=== PATIENT | female | born 1970 | race Caucasian/White ===

== ENCOUNTER 2019-06-14 12:54 | Inpatient (IN) | payer MEDICAID ==
[~2019-06-14] VITALS: Ht 157.5 cm; Wt 110.4 kg
[~2019-06-14 12:54] MED LIST: LURA20TA PO; OLAN15TA2 PO; [UNRECOGNIZED DRUG - CODE] TP
[2019-06-14 16:19] VITALS: BP 152/88
[2019-06-14] MEDS ORDERED: LORazepam 2 MG TABLET PO PRN (16:30)
[2019-06-14] MEDS ORDERED: INFLUENZA VIRUS VACCINE QVS 2019-20 (3YR+)/PF 60 MCG/0.5 ML SYRINGE IM ONE (16:30)
[2019-06-14] MEDS ORDERED: ZOLPIDEM TARTRATE 10 MG TABLET PO PRN (16:30)
[2019-06-14] MEDS ORDERED: OLAN10TA3 PO (16:42)
[2019-06-14] MEDS ORDERED: BENZ2TAB10 PO (16:42)
[2019-06-14 16:49] VITALS: BP 150/90
[2019-06-15 03:36] VITALS: BP 139/82
[2019-06-15 08:15] VITALS: BP 137/51
[2019-06-15 10:15] VITALS: BP 161/91
[2019-06-15] MEDS: CloNIDine HCL 0.1 MG TABLET PO SCH ×2 (10:57→17:00)
[2019-06-15 13:42] VITALS: BP 124/69
[2019-06-15 16:04] VITALS: BP 136/68
[2019-06-15] MEDS: OLANZapine 10 MG TABLET PO SCH (20:30)
[2019-06-15] MEDS: BENZTROPINE MESYLATE 2 MG TABLET PO SCH (21:00)
[2019-06-16 08:19] VITALS: BP 128/84
[2019-06-16] MEDS: CloNIDine HCL 0.1 MG TABLET PO SCH ×2 (09:00→17:00)
[2019-06-16 16:10] VITALS: BP 126/89
[2019-06-16] MEDS: OLANZapine 10 MG TABLET PO SCH (20:26)
[2019-06-16] MEDS: BENZTROPINE MESYLATE 2 MG TABLET PO SCH (20:33)
[2019-06-17 06:41] VITALS: BP 128/80
[2019-06-17 07:52] LABS: BASOPHILS % (AUTO) 0.7 % (0.0-2.0); HEMATOCRIT 43.6 % (36-46); HEMOGLOBIN 14.5 g/dL (12.0-16.0); LYMPHOCYTES # (AUTO) 2.5 K/uL (1.0-4.8); MEAN CORPUSCULAR HEMOGLOBIN 29.2 pg (26.0-34.0); MEAN CORPUSCULAR HGB CONC 33.3 G/dL (31.0-37.0); MEAN CORPUSCULAR VOLUME 88 fL (80-100); MONOCYTES # (AUTO) 0.8 K/uL (0.1-1.0); MONOCYTES % (AUTO) 5.6 % (2.0-9.0); NEUTROPHILS # (AUTO) 10.2 K/uL (1.8-7.7); NEUTROPHILS % (AUTO) 73.7 % (40.0-70.0); PLATELET COUNT (AUTO) 259 K/uL (150-450); RED BLOOD CELL COUNT(AUTO) 4.97 MIL/uL (4.00-5.20); RED CELL DISTRIBUTION WIDTH 13.7 % (11.5-14.5)
[2019-06-17 08:09] LABS: HEMOGLOBIN A1C 8.2 % (4.5-6.2)
[2019-06-17 08:18] LABS: ALANINE AMINOTRANSFERASE 35 U/L (12-78); ALBUMIN 3.6 g/dL (3.4-5.0); ALKALINE PHOSPHATASE 124 U/L (46-116); ANION GAP 7 mmol/L (8-16); ASPARTATE AMINOTRANSFERASE 21 U/L (15-37); BILIRUBIN,TOTAL 0.4 mg/dL (0.1-1.0); CALCIUM, TOTAL 9.3 mg/dL (8.8-10.5); CARBON DIOXIDE 33 mmol/L (22-29); CHLORIDE 98 mmol/L (98-107); CHOL/HDL RATIO 5.3 (3.9-5.7); CHOLESTEROL 235 mg/dL (131-200); CREATININE 0.55 mg/dL (0.60-1.30); FREE T4 (FREE THYROXINE) 1.08 ng/dL (0.76-1.46); GLOMERULAR FILTR. RATE CALC > 60 mL/min (>60); GLUCOSE,RANDOM 160 mg/dL (70-110); HCG,QUANTITATIVE < 1 mIU/mL (0-6); HDL CHOLESTEROL 44 mg/dL (40-60); LDL CHOL (CALC.) 148 mg/dL (0-130); POTASSIUM 4.7 mmol/L (3.5-5.1); SODIUM SERUM 138 mmol/L (136-145); TRIGLYCERIDES 215 mg/dL (15-150); UREA NITROGEN, BLOOD 10 mg/dL (7-18)
[2019-06-17] MEDS: CloNIDine HCL 0.1 MG TABLET PO SCH ×2 (08:29→16:11)
[2019-06-17 08:38] VITALS: BP 119/75
[2019-06-17 16:05] VITALS: BP 136/78
[2019-06-17] MEDS: BENZTROPINE MESYLATE 2 MG TABLET PO SCH (20:21)
[2019-06-17] MEDS: OLANZapine 10 MG TABLET PO SCH (20:21)
[2019-06-18 05:37] VITALS: BP 127/78
[2019-06-18] MEDS: CloNIDine HCL 0.1 MG TABLET PO SCH ×2 (09:06→16:20)
[2019-06-18] MEDS ORDERED: INSULIN LISPRO 100 UNITS/ML SQ PRN (09:45)
[2019-06-18] MEDS ORDERED: GLUCAGON,HUMAN RECOMBINANT 1 MG VIAL IM PRN (09:45)
[2019-06-18] MEDS: COLLOIDAL OATMEAL PACKET TP PRN (10:51)
[2019-06-18 13:07] VITALS: BP 114/75
[2019-06-18 16:03] VITALS: BP 136/80
[2019-06-18] MEDS: MetFORMIN HCL 500 MG TABLET PO SCH (16:20)
[2019-06-18 17:50] LABS: GLUCOMETER DEV NAME(LOC) BV3S.; GLUCOSE,POINT OF CARE 170 MG/DL (70-110)
[2019-06-18] MEDS: OLANZapine 10 MG TABLET PO SCH (20:09)
[2019-06-18] MEDS: BENZTROPINE MESYLATE 2 MG TABLET PO SCH (20:09)
[2019-06-18] MEDS ORDERED: ATORVASTATIN CALCIUM 10 MG TABLET PO SCH (21:00)
[2019-06-19 02:08] VITALS: BP 128/66
[2019-06-19] MEDS: MetFORMIN HCL 500 MG TABLET PO SCH ×2 (07:08→16:45)
[2019-06-19 07:10] LABS: GLUCOMETER DEV NAME(LOC) BV3S.; GLUCOSE,POINT OF CARE 127 MG/DL (70-110)
[2019-06-19] MEDS: COLLOIDAL OATMEAL PACKET TP PRN (07:53)
[2019-06-19 08:40] VITALS: BP 143/88
[2019-06-19] MEDS: CloNIDine HCL 0.1 MG TABLET PO SCH ×2 (08:48→16:05)
[2019-06-19] MEDS ORDERED: METF-960 PO (12:19)
[2019-06-19] MEDS ORDERED: AMLO2.5T4 PO (12:19)
[2019-06-19] MEDS ORDERED: ATOR10TA84 PO (12:20)
[2019-06-19 16:15] VITALS: BP 123/84
== END 2019-06-19 17:23 | disposition home or self-care (01) | DRG 750 ==
LOC: B3A 17:04
DX: F25.1 Schizoaffective disorder, depressive type (principal); Z59.0 Homelessness; L40.9 Psoriasis, unspecified; Z88.6 Allergy status to analgesic agent; Z88.0 Allergy status to penicillin; Z53.20 Procedure and treatment not carried out because of patient's decision for unspecified reasons
CPT/HCPCS: 83036; 84439

== ENCOUNTER 2022-08-11 08:35 | Inpatient (IN) | payer MEDICAID, OTHER ==
[~2022-08-11] VITALS: Ht 157.5 cm; Wt 113.5 kg
[~2022-08-11 08:35] MED LIST changes: +AMLO2.5T96 PO; +ATOR10TA PO; +BENZ2TAB76 PO; -LURA20TA PO; +METF-1211 PO; +OLAN10TA74 PO; -OLAN15TA2 PO; -[UNRECOGNIZED DRUG - CODE] TP
[2022-08-11] MEDS ORDERED: LORazepam 2 MG TABLET PO PRN (10:30)
[2022-08-11] MEDS ORDERED: QUEtiapine FUMARATE 100 MG TABLET PO PRN (10:30)
[2022-08-11 10:32] LABS: COVID AG,FIA SOURCE NASOPHARYNGEAL
[2022-08-11 10:41] LABS: ANION GAP 5 mmol/L (8-16); CALCIUM, TOTAL 9.3 mg/dL (8.8-10.5); CARBON DIOXIDE 32 mmol/L (22-29); CHLORIDE 100 mmol/L (98-107); CREATININE 0.64 mg/dL (0.60-1.30); GLUCOSE,RANDOM 240 mg/dL (70-110); POTASSIUM 4.1 mmol/L (3.5-5.1); SODIUM SERUM 137 mmol/L (136-145); UREA NITROGEN, BLOOD 6 mg/dL (7-18)
[2022-08-11 10:43] LABS: GLOMERULAR FILTR. RATE CALC > 60 mL/min (>60)
[2022-08-11 10:48] LABS: ALANINE AMINOTRANSFERASE 42 U/L (12-78); ALBUMIN 3.3 g/dL (3.4-5.0); ALKALINE PHOSPHATASE 143 U/L (46-116); ASPARTATE AMINOTRANSFERASE 18 U/L (15-37); BILIRUBIN,TOTAL 0.4 mg/dL (0.1-1.0); TOTAL PROTEIN, SERUM 7.3 g/dL (6.4-8.2)
[2022-08-11] MEDS: MetFORMIN HCL 500 MG TABLET PO SCH (17:45)
[2022-08-11] MEDS ORDERED: ONDANSETRON HCL 4 MG TABLET PO PRN (19:45)
[2022-08-11] MEDS ORDERED: IBUPROFEN 400 MG TABLET PO PRN (19:45)
[2022-08-11] MEDS ORDERED: GuaiFENesin/D-METHORPHAN [SUGAR-FREE] 200-20MG/10 ML SYRUP UDCUP PO PRN (19:45)
[2022-08-11] MEDS ORDERED: CloNIDine HCL 0.1 MG TABLET PO PRN (19:45)
[2022-08-11] MEDS ORDERED: DOCUSATE SODIUM 100 MG CAPSULE PO PRN (19:45)
[2022-08-11] MEDS ORDERED: MAGNESIUM HYDROXIDE SUSPENSION 30 ML UDCUP PO PRN (19:45)
[2022-08-11] MEDS ORDERED: PETROLATUM,WHITE 28 GM JELLY TP PRN (19:45)
[2022-08-11] MEDS ORDERED: MAG HYDROX/AL HYDROX/SIMETH ES 30 ML SUSPENSION UDCUP PO PRN (19:45)
[2022-08-11] MEDS ORDERED: ACETAMINOPHEN 325 MG TABLET PO PRN (19:45)
[2022-08-11] MEDS ORDERED: NICOTINE 14 MG/24 HOUR PATCH TD PRN (19:45)
[2022-08-11] MEDS ORDERED: ALBUTEROL SULFATE HFA 90 MCG/PUFF 8 GM INHALER IH PRN (19:45)
[2022-08-11] MEDS ORDERED: LOPERAMIDE HCL 2 MG CAPSULE PO PRN (19:45)
[2022-08-11] MEDS: ZOLPIDEM TARTRATE 10 MG TABLET PO PRN (20:06)
[2022-08-11] MEDS ORDERED: INFLUENZA VIRUS VACCINE QVS 2022-23 (6MO+)/PF 60 MCG/0.5 ML SYRINGE IM. ONE (20:15)
[2022-08-11] MEDS ORDERED: ATORVASTATIN CALCIUM 10 MG TABLET PO SCH ×2 (21:00)
[2022-08-12] MEDS: MetFORMIN HCL 500 MG TABLET PO SCH ×2 (06:48→16:42)
[2022-08-12] MEDS ORDERED: MetFORMIN HCL 500 MG TABLET PO SCH (07:00)
[2022-08-12] MEDS: AmLODIPine BESYLATE 2.5 MG TABLET PO SCH (09:00)
[2022-08-12] MEDS ORDERED: AmLODIPine BESYLATE 2.5 MG TABLET PO SCH (09:00)
[2022-08-12] MEDS ORDERED: PIOG15TA66 PO (11:34)
[2022-08-12] MEDS ORDERED: PALI234D IM (11:34)
[2022-08-12] MEDS ORDERED: LISI10TA24 PO (11:34)
[2022-08-12] MEDS ORDERED: ATOR40TA71 PO (11:34)
[2022-08-12] MEDS ORDERED: ALBUTEROL SULFATE HFA 90 MCG/PUFF 8 GM INHALER IH PRN (19:45)
[2022-08-12] MEDS ORDERED: LOPERAMIDE HCL 2 MG CAPSULE PO PRN (19:45)
[2022-08-12] MEDS ORDERED: GuaiFENesin/D-METHORPHAN [SUGAR-FREE] 200-20MG/10 ML SYRUP UDCUP PO PRN (19:45)
[2022-08-12] MEDS ORDERED: PETROLATUM,WHITE 28 GM JELLY TP PRN (19:45)
[2022-08-12] MEDS ORDERED: ACETAMINOPHEN 325 MG TABLET PO PRN (19:45)
[2022-08-12] MEDS ORDERED: NICOTINE 14 MG/24 HOUR PATCH TD PRN (19:45)
[2022-08-12] MEDS ORDERED: MAGNESIUM HYDROXIDE SUSPENSION 30 ML UDCUP PO PRN (19:45)
[2022-08-12] MEDS ORDERED: IBUPROFEN 400 MG TABLET PO PRN (19:45)
[2022-08-12] MEDS ORDERED: ONDANSETRON HCL 4 MG TABLET PO PRN (19:45)
[2022-08-12] MEDS ORDERED: CloNIDine HCL 0.1 MG TABLET PO PRN (19:45)
[2022-08-12] MEDS ORDERED: MAG HYDROX/AL HYDROX/SIMETH ES 30 ML SUSPENSION UDCUP PO PRN (19:45)
[2022-08-12] MEDS ORDERED: DOCUSATE SODIUM 100 MG CAPSULE PO PRN (19:45)
[2022-08-12] MEDS: OLANZapine 10 MG TABLET PO SCH (20:04)
[2022-08-12] MEDS: BENZTROPINE MESYLATE 2 MG TABLET PO SCH (20:04)
[2022-08-12] MEDS: ATORVASTATIN CALCIUM 40 MG TABLET PO SCH (20:23)
[2022-08-13] MEDS: MetFORMIN HCL 500 MG TABLET PO SCH ×2 (06:54→17:00)
[2022-08-13] MEDS: PIOGLITAZONE HCL 15 MG TABLET PO SCH (09:00)
[2022-08-13] MEDS: AmLODIPine BESYLATE 2.5 MG TABLET PO SCH (09:00)
[2022-08-13] MEDS: LISINOPRIL 10 MG TABLET PO SCH (09:00)
[2022-08-13] MEDS: BENZTROPINE MESYLATE 2 MG TABLET PO SCH (20:40)
[2022-08-13] MEDS: ATORVASTATIN CALCIUM 40 MG TABLET PO SCH (20:40)
[2022-08-13] MEDS: OLANZapine 10 MG TABLET PO SCH (20:40)
[2022-08-13] MEDS: MUPIROCIN CALCIUM 2% 22 GM OINTMENT NASAL SCH (21:34)
[2022-08-14] MEDS: MetFORMIN HCL 500 MG TABLET PO SCH ×3 (07:00→16:52)
[2022-08-14] MEDS: AmLODIPine BESYLATE 2.5 MG TABLET PO SCH (09:00)
[2022-08-14] MEDS: MUPIROCIN CALCIUM 2% 22 GM OINTMENT NASAL SCH ×2 (09:00→16:30)
[2022-08-14] MEDS: LISINOPRIL 10 MG TABLET PO SCH (09:00)
[2022-08-14] MEDS: PIOGLITAZONE HCL 15 MG TABLET PO SCH (09:00)
[2022-08-14] MEDS: BENZTROPINE MESYLATE 2 MG TABLET PO SCH ×2 (20:48→21:00)
[2022-08-14] MEDS: OLANZapine 10 MG TABLET PO SCH ×2 (20:48→21:00)
[2022-08-14] MEDS: ATORVASTATIN CALCIUM 40 MG TABLET PO SCH (21:00)
[2022-08-15] MEDS: MetFORMIN HCL 500 MG TABLET PO SCH ×2 (07:00→16:35)
[2022-08-15] MEDS: MUPIROCIN CALCIUM 2% 22 GM OINTMENT NASAL SCH ×3 (08:16→16:35)
[2022-08-15] MEDS: LISINOPRIL 10 MG TABLET PO SCH ×2 (08:17→08:56)
[2022-08-15] MEDS: PIOGLITAZONE HCL 15 MG TABLET PO SCH ×2 (08:17→08:55)
[2022-08-15] MEDS: AmLODIPine BESYLATE 2.5 MG TABLET PO SCH ×2 (08:17→08:55)
[2022-08-15 20:53] VITALS: BP 142/71
[2022-08-15] MEDS: OLANZapine 10 MG TABLET PO SCH (20:59)
[2022-08-15] MEDS: ATORVASTATIN CALCIUM 40 MG TABLET PO SCH (20:59)
[2022-08-15] MEDS: BENZTROPINE MESYLATE 2 MG TABLET PO SCH (20:59)
[2022-08-16] MEDS: MetFORMIN HCL 500 MG TABLET PO SCH ×2 (06:51→16:34)
[2022-08-16 08:10] VITALS: BP 110/63
[2022-08-16] MEDS: AmLODIPine BESYLATE 2.5 MG TABLET PO SCH (08:59)
[2022-08-16] MEDS: MUPIROCIN CALCIUM 2% 22 GM OINTMENT NASAL SCH ×2 (08:59→16:34)
[2022-08-16] MEDS: PIOGLITAZONE HCL 15 MG TABLET PO SCH (08:59)
[2022-08-16] MEDS: LISINOPRIL 10 MG TABLET PO SCH (08:59)
[2022-08-16 21:00] VITALS: BP 124/68
[2022-08-16] MEDS: OLANZapine 10 MG TABLET PO SCH (21:00)
[2022-08-16] MEDS: BENZTROPINE MESYLATE 2 MG TABLET PO SCH (21:00)
[2022-08-16] MEDS: ATORVASTATIN CALCIUM 40 MG TABLET PO SCH (21:00)
[2022-08-17] MEDS ORDERED: HALOPERIDOL LACTATE 5 MG/ML VIAL IM PRN (04:30)
[2022-08-17] MEDS: MetFORMIN HCL 500 MG TABLET PO SCH ×2 (06:49→16:18)
[2022-08-17] MEDS: LISINOPRIL 10 MG TABLET PO SCH (08:11)
[2022-08-17] MEDS: AmLODIPine BESYLATE 2.5 MG TABLET PO SCH (08:11)
[2022-08-17] MEDS: MUPIROCIN CALCIUM 2% 22 GM OINTMENT NASAL SCH ×2 (08:11→16:18)
[2022-08-17] MEDS: PIOGLITAZONE HCL 15 MG TABLET PO SCH (08:11)
[2022-08-17] MEDS: OLANZapine 10 MG TABLET PO SCH (20:23)
[2022-08-17] MEDS: ATORVASTATIN CALCIUM 40 MG TABLET PO SCH (20:23)
[2022-08-17] MEDS: BENZTROPINE MESYLATE 2 MG TABLET PO SCH (20:23)
[2022-08-18] MEDS: MetFORMIN HCL 500 MG TABLET PO SCH ×2 (06:40→16:13)
[2022-08-18] MEDS: LISINOPRIL 10 MG TABLET PO SCH (08:50)
[2022-08-18] MEDS: PIOGLITAZONE HCL 15 MG TABLET PO SCH (08:50)
[2022-08-18] MEDS: MUPIROCIN CALCIUM 2% 22 GM OINTMENT NASAL SCH ×2 (08:50→16:12)
[2022-08-18] MEDS: AmLODIPine BESYLATE 2.5 MG TABLET PO SCH (08:50)
[2022-08-18 12:11] LABS: GLUCOMETER DEV NAME(LOC) POC.BV
[2022-08-18] MEDS: BENZTROPINE MESYLATE 2 MG TABLET PO SCH (20:09)
[2022-08-18] MEDS: ATORVASTATIN CALCIUM 40 MG TABLET PO SCH (20:09)
[2022-08-18] MEDS: OLANZapine 10 MG TABLET PO SCH (20:09)
[2022-08-19] MEDS: MetFORMIN HCL 500 MG TABLET PO SCH ×2 (06:44→16:16)
[2022-08-19] MEDS: AmLODIPine BESYLATE 2.5 MG TABLET PO SCH (09:00)
[2022-08-19] MEDS: PIOGLITAZONE HCL 15 MG TABLET PO SCH (09:00)
[2022-08-19] MEDS: LISINOPRIL 10 MG TABLET PO SCH (09:00)
[2022-08-19] MEDS: MUPIROCIN CALCIUM 2% 22 GM OINTMENT NASAL SCH ×2 (09:00→16:51)
[2022-08-19] MEDS: ATORVASTATIN CALCIUM 40 MG TABLET PO SCH (20:15)
[2022-08-19] MEDS: OLANZapine 10 MG TABLET PO SCH (20:15)
[2022-08-19] MEDS: BENZTROPINE MESYLATE 2 MG TABLET PO SCH (20:15)
[2022-08-20] MEDS: MetFORMIN HCL 500 MG TABLET PO SCH ×2 (06:40→16:13)
[2022-08-20] MEDS: LISINOPRIL 10 MG TABLET PO SCH (09:00)
[2022-08-20] MEDS: MUPIROCIN CALCIUM 2% 22 GM OINTMENT NASAL SCH ×2 (09:00→16:13)
[2022-08-20] MEDS: AmLODIPine BESYLATE 2.5 MG TABLET PO SCH (09:00)
[2022-08-20] MEDS: PIOGLITAZONE HCL 15 MG TABLET PO SCH (09:00)
[2022-08-20] MEDS: OLANZapine 10 MG TABLET PO SCH (20:47)
[2022-08-20] MEDS: BENZTROPINE MESYLATE 2 MG TABLET PO SCH (20:47)
[2022-08-20] MEDS: ATORVASTATIN CALCIUM 40 MG TABLET PO SCH (20:47)
[2022-08-21] MEDS: MetFORMIN HCL 500 MG TABLET PO SCH ×2 (06:39→16:34)
[2022-08-21] MEDS: PIOGLITAZONE HCL 15 MG TABLET PO SCH (08:59)
[2022-08-21] MEDS: LISINOPRIL 10 MG TABLET PO SCH (09:00)
[2022-08-21] MEDS: AmLODIPine BESYLATE 2.5 MG TABLET PO SCH (09:00)
[2022-08-21] MEDS: ATORVASTATIN CALCIUM 40 MG TABLET PO SCH (20:18)
[2022-08-21] MEDS: OLANZapine 10 MG TABLET PO SCH (20:18)
[2022-08-21] MEDS: BENZTROPINE MESYLATE 2 MG TABLET PO SCH (20:19)
[2022-08-22] MEDS: MetFORMIN HCL 500 MG TABLET PO SCH ×2 (06:45→16:04)
[2022-08-22] MEDS: AmLODIPine BESYLATE 2.5 MG TABLET PO SCH (09:00)
[2022-08-22] MEDS: PIOGLITAZONE HCL 15 MG TABLET PO SCH (09:00)
[2022-08-22] MEDS: LISINOPRIL 10 MG TABLET PO SCH (09:00)
[2022-08-22] MEDS: OLANZapine 10 MG TABLET PO SCH ×2 (20:05→21:00)
[2022-08-22] MEDS: ATORVASTATIN CALCIUM 40 MG TABLET PO SCH ×2 (20:06→21:00)
[2022-08-22] MEDS: BENZTROPINE MESYLATE 2 MG TABLET PO SCH ×2 (21:00→21:15)
[2022-08-23] MEDS: MetFORMIN HCL 500 MG TABLET PO SCH ×2 (07:00→16:49)
[2022-08-23] MEDS: AmLODIPine BESYLATE 2.5 MG TABLET PO SCH (08:24)
[2022-08-23] MEDS: LISINOPRIL 10 MG TABLET PO SCH (08:24)
[2022-08-23] MEDS: PIOGLITAZONE HCL 15 MG TABLET PO SCH (08:24)
[2022-08-23] MEDS: OLANZapine 10 MG TABLET PO SCH (21:00)
[2022-08-23] MEDS: BENZTROPINE MESYLATE 2 MG TABLET PO SCH (21:00)
[2022-08-23] MEDS: ATORVASTATIN CALCIUM 40 MG TABLET PO SCH (21:00)
[2022-08-23] MEDS: HALOPERIDOL LACTATE 5 MG/ML VIAL IM PRN (21:14)
[2022-08-24] MEDS: MetFORMIN HCL 500 MG TABLET PO SCH ×2 (06:50→17:00)
[2022-08-24] MEDS: LISINOPRIL 10 MG TABLET PO SCH (09:00)
[2022-08-24] MEDS: AmLODIPine BESYLATE 2.5 MG TABLET PO SCH (09:00)
[2022-08-24] MEDS: PIOGLITAZONE HCL 15 MG TABLET PO SCH (09:00)
[2022-08-24] MEDS: OLANZapine 10 MG TABLET PO SCH ×2 (09:00→21:00)
[2022-08-24] MEDS: HALOPERIDOL LACTATE 5 MG/ML VIAL IM PRN ×2 (09:25→21:12)
[2022-08-24] MEDS: HYDROCORTISONE 1% 30 GM CREAM TP SCH (14:43)
[2022-08-24 20:00] VITALS: BP 155/87
[2022-08-24] MEDS: ATORVASTATIN CALCIUM 40 MG TABLET PO SCH (21:00)
[2022-08-24] MEDS: BENZTROPINE MESYLATE 2 MG TABLET PO SCH (21:00)
[2022-08-25] MEDS: MetFORMIN HCL 500 MG TABLET PO SCH ×2 (06:55→16:32)
[2022-08-25] MEDS: AmLODIPine BESYLATE 2.5 MG TABLET PO SCH (09:00)
[2022-08-25] MEDS: PIOGLITAZONE HCL 15 MG TABLET PO SCH (09:00)
[2022-08-25] MEDS: OLANZapine 10 MG TABLET PO SCH ×2 (09:00→20:39)
[2022-08-25] MEDS: LISINOPRIL 10 MG TABLET PO SCH (09:00)
[2022-08-25] MEDS: HYDROCORTISONE 1% 30 GM CREAM TP SCH (09:00)
[2022-08-25] MEDS: HALOPERIDOL LACTATE 5 MG/ML VIAL IM PRN (09:21)
[2022-08-25] MEDS: BENZTROPINE MESYLATE 2 MG TABLET PO SCH (20:39)
[2022-08-25] MEDS: ATORVASTATIN CALCIUM 40 MG TABLET PO SCH (20:39)
[2022-08-26] MEDS: MetFORMIN HCL 500 MG TABLET PO SCH ×2 (07:03→17:00)
[2022-08-26] MEDS: LISINOPRIL 10 MG TABLET PO SCH (09:00)
[2022-08-26] MEDS: HYDROCORTISONE 1% 30 GM CREAM TP SCH (09:00)
[2022-08-26] MEDS: PIOGLITAZONE HCL 15 MG TABLET PO SCH (09:00)
[2022-08-26] MEDS: OLANZapine 10 MG TABLET PO SCH ×2 (09:00→21:06)
[2022-08-26] MEDS: AmLODIPine BESYLATE 2.5 MG TABLET PO SCH (09:00)
[2022-08-26] MEDS: HALOPERIDOL LACTATE 5 MG/ML VIAL IM PRN (09:40)
[2022-08-26 09:41] LABS: GLUCOMETER DEV NAME(LOC) POC.BV
[2022-08-26] MEDS: BENZTROPINE MESYLATE 2 MG TABLET PO SCH (21:06)
[2022-08-26] MEDS: ATORVASTATIN CALCIUM 40 MG TABLET PO SCH (21:06)
[2022-08-27] MEDS: MetFORMIN HCL 500 MG TABLET PO SCH ×2 (07:00→16:33)
[2022-08-27] MEDS: HYDROCORTISONE 1% 30 GM CREAM TP SCH ×2 (09:00→09:12)
[2022-08-27] MEDS: PIOGLITAZONE HCL 15 MG TABLET PO SCH ×2 (09:00→09:12)
[2022-08-27] MEDS: AmLODIPine BESYLATE 2.5 MG TABLET PO SCH ×2 (09:00→09:12)
[2022-08-27] MEDS: LISINOPRIL 10 MG TABLET PO SCH ×2 (09:00→09:11)
[2022-08-27] MEDS: OLANZapine 10 MG TABLET PO SCH ×2 (09:11→20:39)
[2022-08-27] MEDS: ATORVASTATIN CALCIUM 40 MG TABLET PO SCH (20:38)
[2022-08-27] MEDS: BENZTROPINE MESYLATE 2 MG TABLET PO SCH (20:38)
[2022-08-27] MEDS: HALOPERIDOL LACTATE 5 MG/ML VIAL IM PRN (20:38)
[2022-08-28] MEDS: MetFORMIN HCL 500 MG TABLET PO SCH ×2 (06:46→16:57)
[2022-08-28 08:23] VITALS: BP 130/79
[2022-08-28] MEDS ORDERED: HALOPERIDOL LACTATE 5 MG/ML VIAL IM ONE (09:30)
[2022-08-28] MEDS ORDERED: LORazepam 2 MG/ML VIAL IM ONE (09:30)
[2022-08-28] MEDS ORDERED: DiphenhydrAMINE HCL 50 MG/ML VIAL IM ONE (09:30)
[2022-08-28] MEDS: HYDROCORTISONE 1% 30 GM CREAM TP SCH (09:58)
[2022-08-28] MEDS: OLANZapine 10 MG TABLET PO SCH ×2 (09:58→20:23)
[2022-08-28] MEDS: LISINOPRIL 10 MG TABLET PO SCH (10:03)
[2022-08-28] MEDS: PIOGLITAZONE HCL 15 MG TABLET PO SCH (10:03)
[2022-08-28] MEDS: AmLODIPine BESYLATE 2.5 MG TABLET PO SCH (10:03)
[2022-08-28] MEDS: BENZTROPINE MESYLATE 2 MG TABLET PO SCH (20:23)
[2022-08-28] MEDS: ATORVASTATIN CALCIUM 40 MG TABLET PO SCH (20:23)
[2022-08-29] MEDS: MetFORMIN HCL 500 MG TABLET PO SCH ×2 (06:43→16:18)
[2022-08-29] MEDS: HYDROCORTISONE 1% 30 GM CREAM TP SCH (09:00)
[2022-08-29] MEDS: LISINOPRIL 10 MG TABLET PO SCH (09:00)
[2022-08-29] MEDS: AmLODIPine BESYLATE 2.5 MG TABLET PO SCH (09:00)
[2022-08-29] MEDS: OLANZapine 10 MG TABLET PO SCH ×2 (09:00→11:00)
[2022-08-29] MEDS: PIOGLITAZONE HCL 15 MG TABLET PO SCH (09:00)
[2022-08-29] MEDS: BENZTROPINE MESYLATE 2 MG TABLET PO SCH (20:10)
[2022-08-29] MEDS: ATORVASTATIN CALCIUM 40 MG TABLET PO SCH (20:10)
[2022-08-30] MEDS: MetFORMIN HCL 500 MG TABLET PO SCH ×2 (07:00→16:38)
[2022-08-30] MEDS: LISINOPRIL 10 MG TABLET PO SCH (08:40)
[2022-08-30] MEDS: OLANZapine 10 MG TABLET PO SCH ×2 (08:40→20:13)
[2022-08-30] MEDS: HYDROCORTISONE 1% 30 GM CREAM TP SCH (08:40)
[2022-08-30] MEDS: AmLODIPine BESYLATE 2.5 MG TABLET PO SCH (08:40)
[2022-08-30] MEDS: PIOGLITAZONE HCL 15 MG TABLET PO SCH (08:41)
[2022-08-30] MEDS: ATORVASTATIN CALCIUM 40 MG TABLET PO SCH (20:13)
[2022-08-30] MEDS: BENZTROPINE MESYLATE 2 MG TABLET PO SCH (20:13)
[2022-08-31] MEDS: MetFORMIN HCL 500 MG TABLET PO SCH ×2 (06:23→16:09)
[2022-08-31] MEDS: LISINOPRIL 10 MG TABLET PO SCH (08:08)
[2022-08-31] MEDS: PIOGLITAZONE HCL 15 MG TABLET PO SCH (08:08)
[2022-08-31] MEDS: OLANZapine 10 MG TABLET PO SCH ×2 (08:08→20:06)
[2022-08-31] MEDS: AmLODIPine BESYLATE 2.5 MG TABLET PO SCH (08:08)
[2022-08-31 08:22] VITALS: BP 129/86
[2022-08-31] MEDS: HYDROCORTISONE 1% 30 GM CREAM TP SCH (09:02)
[2022-08-31] MEDS: ATORVASTATIN CALCIUM 40 MG TABLET PO SCH (20:06)
[2022-08-31] MEDS: BENZTROPINE MESYLATE 2 MG TABLET PO SCH (20:06)
[2022-09-01] MEDS: MetFORMIN HCL 500 MG TABLET PO SCH ×2 (06:33→17:00)
[2022-09-01] MEDS: PIOGLITAZONE HCL 15 MG TABLET PO SCH (08:02)
[2022-09-01] MEDS: AmLODIPine BESYLATE 2.5 MG TABLET PO SCH (08:02)
[2022-09-01] MEDS: OLANZapine 10 MG TABLET PO SCH ×2 (08:02→20:21)
[2022-09-01] MEDS: LISINOPRIL 10 MG TABLET PO SCH (08:02)
[2022-09-01] MEDS: HYDROCORTISONE 1% 30 GM CREAM TP SCH (08:03)
[2022-09-01 08:18] VITALS: BP 132/79
[2022-09-01 20:03] VITALS: BP 129/73
[2022-09-01] MEDS: ATORVASTATIN CALCIUM 40 MG TABLET PO SCH (20:21)
[2022-09-01] MEDS: BENZTROPINE MESYLATE 2 MG TABLET PO SCH (20:21)
[2022-09-02] MEDS: MetFORMIN HCL 500 MG TABLET PO SCH ×2 (06:37→16:36)
[2022-09-02] MEDS: OLANZapine 10 MG TABLET PO SCH ×2 (08:08→20:10)
[2022-09-02] MEDS: PIOGLITAZONE HCL 15 MG TABLET PO SCH (08:08)
[2022-09-02] MEDS: LISINOPRIL 10 MG TABLET PO SCH (08:08)
[2022-09-02] MEDS: HYDROCORTISONE 1% 30 GM CREAM TP SCH (08:08)
[2022-09-02] MEDS: AmLODIPine BESYLATE 2.5 MG TABLET PO SCH (08:09)
[2022-09-02 16:53] VITALS: BP 121/71
[2022-09-02] MEDS: ATORVASTATIN CALCIUM 40 MG TABLET PO SCH (20:10)
[2022-09-02] MEDS: BENZTROPINE MESYLATE 2 MG TABLET PO SCH (20:10)
[2022-09-03] MEDS: MetFORMIN HCL 500 MG TABLET PO SCH ×2 (06:40→17:15)
[2022-09-03] MEDS: OLANZapine 10 MG TABLET PO SCH ×2 (08:39→20:06)
[2022-09-03] MEDS: AmLODIPine BESYLATE 2.5 MG TABLET PO SCH (08:39)
[2022-09-03] MEDS: PIOGLITAZONE HCL 15 MG TABLET PO SCH (08:39)
[2022-09-03] MEDS: LISINOPRIL 10 MG TABLET PO SCH (08:39)
[2022-09-03] MEDS: HYDROCORTISONE 1% 30 GM CREAM TP SCH (08:39)
[2022-09-03 09:41] LABS: GLUCOMETER DEV NAME(LOC) POC.BV
[2022-09-03] MEDS: BENZTROPINE MESYLATE 2 MG TABLET PO SCH (20:06)
[2022-09-03] MEDS: ATORVASTATIN CALCIUM 40 MG TABLET PO SCH (20:06)
[2022-09-04] MEDS: MetFORMIN HCL 500 MG TABLET PO SCH ×2 (06:34→16:52)
[2022-09-04] MEDS: OLANZapine 10 MG TABLET PO SCH ×2 (08:11→20:31)
[2022-09-04] MEDS: AmLODIPine BESYLATE 2.5 MG TABLET PO SCH (08:11)
[2022-09-04] MEDS: LISINOPRIL 10 MG TABLET PO SCH (08:11)
[2022-09-04] MEDS: PIOGLITAZONE HCL 15 MG TABLET PO SCH (08:11)
[2022-09-04] MEDS: HYDROCORTISONE 1% 30 GM CREAM TP SCH (08:31)
[2022-09-04 08:40] VITALS: BP 129/84
[2022-09-04 20:29] VITALS: BP 123/77
[2022-09-04] MEDS: BENZTROPINE MESYLATE 2 MG TABLET PO SCH (20:32)
[2022-09-04] MEDS: ATORVASTATIN CALCIUM 40 MG TABLET PO SCH (20:32)
[2022-09-05] MEDS: MetFORMIN HCL 500 MG TABLET PO SCH ×2 (06:39→16:14)
[2022-09-05 08:16] VITALS: BP 130/84
[2022-09-05] MEDS: HYDROCORTISONE 1% 30 GM CREAM TP SCH (09:38)
[2022-09-05] MEDS: OLANZapine 10 MG TABLET PO SCH ×2 (09:38→20:12)
[2022-09-05] MEDS: LISINOPRIL 10 MG TABLET PO SCH (09:38)
[2022-09-05] MEDS: PIOGLITAZONE HCL 15 MG TABLET PO SCH (09:38)
[2022-09-05] MEDS: AmLODIPine BESYLATE 2.5 MG TABLET PO SCH (09:38)
[2022-09-05] MEDS: MUPIROCIN CALCIUM 2% 22 GM OINTMENT NASAL SCH (16:14)
[2022-09-05] MEDS: BENZTROPINE MESYLATE 2 MG TABLET PO SCH (20:12)
[2022-09-05] MEDS: ATORVASTATIN CALCIUM 40 MG TABLET PO SCH (20:12)
[2022-09-06] MEDS: MetFORMIN HCL 500 MG TABLET PO SCH ×2 (07:00→16:47)
[2022-09-06 08:24] VITALS: BP 128/83
[2022-09-06] MEDS: PIOGLITAZONE HCL 15 MG TABLET PO SCH (08:30)
[2022-09-06] MEDS: OLANZapine 10 MG TABLET PO SCH ×2 (08:30→20:05)
[2022-09-06] MEDS: LISINOPRIL 10 MG TABLET PO SCH (08:31)
[2022-09-06] MEDS: AmLODIPine BESYLATE 2.5 MG TABLET PO SCH (08:31)
[2022-09-06] MEDS: MUPIROCIN CALCIUM 2% 22 GM OINTMENT NASAL SCH ×2 (08:31→16:50)
[2022-09-06] MEDS: HYDROCORTISONE 1% 30 GM CREAM TP SCH (08:31)
[2022-09-06] MEDS: ATORVASTATIN CALCIUM 40 MG TABLET PO SCH (20:05)
[2022-09-06] MEDS: BENZTROPINE MESYLATE 2 MG TABLET PO SCH (20:05)
[2022-09-07] MEDS: MetFORMIN HCL 500 MG TABLET PO SCH ×2 (07:00→16:25)
[2022-09-07 08:10] VITALS: BP 121/79
[2022-09-07] MEDS: AmLODIPine BESYLATE 2.5 MG TABLET PO SCH (08:35)
[2022-09-07] MEDS: OLANZapine 10 MG TABLET PO SCH ×2 (08:35→20:13)
[2022-09-07] MEDS: LISINOPRIL 10 MG TABLET PO SCH (08:35)
[2022-09-07] MEDS: PIOGLITAZONE HCL 15 MG TABLET PO SCH (08:35)
[2022-09-07] MEDS: MUPIROCIN CALCIUM 2% 22 GM OINTMENT NASAL SCH ×2 (08:36→16:24)
[2022-09-07] MEDS: HYDROCORTISONE 1% 30 GM CREAM TP SCH (08:36)
[2022-09-07] MEDS: ATORVASTATIN CALCIUM 40 MG TABLET PO SCH (20:13)
[2022-09-07] MEDS: BENZTROPINE MESYLATE 2 MG TABLET PO SCH (20:13)
[2022-09-07 21:08] VITALS: BP 118/77
[2022-09-08] MEDS: MetFORMIN HCL 500 MG TABLET PO SCH ×2 (06:44→16:15)
[2022-09-08 08:18] VITALS: BP 115/71
[2022-09-08] MEDS: AmLODIPine BESYLATE 2.5 MG TABLET PO SCH (08:31)
[2022-09-08] MEDS: LISINOPRIL 10 MG TABLET PO SCH (08:31)
[2022-09-08] MEDS: OLANZapine 10 MG TABLET PO SCH ×2 (08:31→20:13)
[2022-09-08] MEDS: PIOGLITAZONE HCL 15 MG TABLET PO SCH (08:31)
[2022-09-08] MEDS: MUPIROCIN CALCIUM 2% 22 GM OINTMENT NASAL SCH ×2 (08:32→16:15)
[2022-09-08] MEDS: HYDROCORTISONE 1% 30 GM CREAM TP SCH (08:32)
[2022-09-08] MEDS: ATORVASTATIN CALCIUM 40 MG TABLET PO SCH (20:13)
[2022-09-08] MEDS: BENZTROPINE MESYLATE 2 MG TABLET PO SCH (20:13)
[2022-09-08 20:52] VITALS: BP 120/73
[2022-09-09] MEDS: MetFORMIN HCL 500 MG TABLET PO SCH ×2 (06:50→16:13)
[2022-09-09 08:13] VITALS: BP 126/82
[2022-09-09] MEDS: MUPIROCIN CALCIUM 2% 22 GM OINTMENT NASAL SCH ×2 (08:20→16:14)
[2022-09-09] MEDS: LISINOPRIL 10 MG TABLET PO SCH (08:20)
[2022-09-09] MEDS: PIOGLITAZONE HCL 15 MG TABLET PO SCH (08:20)
[2022-09-09] MEDS: OLANZapine 10 MG TABLET PO SCH ×2 (08:20→20:39)
[2022-09-09] MEDS: HYDROCORTISONE 1% 30 GM CREAM TP SCH (08:20)
[2022-09-09] MEDS: AmLODIPine BESYLATE 2.5 MG TABLET PO SCH (08:21)
[2022-09-09] MEDS: ATORVASTATIN CALCIUM 40 MG TABLET PO SCH (20:39)
[2022-09-09] MEDS: BENZTROPINE MESYLATE 2 MG TABLET PO SCH (20:39)
[2022-09-10] MEDS: MetFORMIN HCL 500 MG TABLET PO SCH ×2 (06:28→16:19)
[2022-09-10 08:13] VITALS: BP 118/84
[2022-09-10] MEDS: PredniSONE 20 MG TABLET PO SCH (08:49)
[2022-09-10] MEDS: LISINOPRIL 10 MG TABLET PO SCH (08:49)
[2022-09-10] MEDS: HYDROCORTISONE 1% 30 GM OINTMENT TP SCH (08:49)
[2022-09-10] MEDS: AmLODIPine BESYLATE 2.5 MG TABLET PO SCH (08:49)
[2022-09-10] MEDS: OLANZapine 10 MG TABLET PO SCH ×2 (08:49→20:03)
[2022-09-10] MEDS: PIOGLITAZONE HCL 15 MG TABLET PO SCH (08:49)
[2022-09-10] MEDS: MUPIROCIN CALCIUM 2% 22 GM OINTMENT NASAL SCH (08:50)
[2022-09-10 08:51] LABS: GLUCOMETER DEV NAME(LOC) POC.BV
[2022-09-10] MEDS: BENZTROPINE MESYLATE 2 MG TABLET PO SCH (20:03)
[2022-09-10] MEDS: ATORVASTATIN CALCIUM 40 MG TABLET PO SCH (20:03)
[2022-09-10 21:34] VITALS: BP 126/86
[2022-09-11] MEDS: MetFORMIN HCL 500 MG TABLET PO SCH ×3 (05:45→16:10)
[2022-09-11 08:20] VITALS: BP 129/86
[2022-09-11] MEDS: AmLODIPine BESYLATE 2.5 MG TABLET PO SCH (08:20)
[2022-09-11] MEDS: LISINOPRIL 10 MG TABLET PO SCH (08:20)
[2022-09-11] MEDS: OLANZapine 10 MG TABLET PO SCH ×2 (08:20→20:21)
[2022-09-11] MEDS: PredniSONE 20 MG TABLET PO SCH (08:20)
[2022-09-11] MEDS: HYDROCORTISONE 1% 30 GM OINTMENT TP SCH (08:21)
[2022-09-11] MEDS: PIOGLITAZONE HCL 15 MG TABLET PO SCH (08:22)
[2022-09-11] MEDS: ATORVASTATIN CALCIUM 40 MG TABLET PO SCH (20:21)
[2022-09-11] MEDS: BENZTROPINE MESYLATE 2 MG TABLET PO SCH (20:21)
[2022-09-11 20:45] VITALS: BP 118/78
[2022-09-12] MEDS: MetFORMIN HCL 500 MG TABLET PO SCH ×3 (06:30→16:36)
[2022-09-12 07:57] LABS: HEMOGLOBIN A1C 9.2 % (3.8-5.6)
[2022-09-12 08:08] LABS: CHOL/HDL RATIO 3.4 (3.9-5.7); FREE T4 (FREE THYROXINE) 0.89 ng/dL (0.76-1.46); THYROID STIMULATING HORMONE 2.03 uIU/mL (0.36-3.74)
[2022-09-12 08:21] LABS: GLUCOMETER DEV NAME(LOC) POC.BV
[2022-09-12] MEDS: LISINOPRIL 10 MG TABLET PO SCH (08:35)
[2022-09-12] MEDS: AmLODIPine BESYLATE 2.5 MG TABLET PO SCH (08:35)
[2022-09-12] MEDS: PIOGLITAZONE HCL 15 MG TABLET PO SCH (08:35)
[2022-09-12] MEDS: PredniSONE 20 MG TABLET PO SCH (08:35)
[2022-09-12] MEDS: OLANZapine 10 MG TABLET PO SCH ×2 (08:35→20:07)
[2022-09-12] MEDS: HYDROCORTISONE 1% 30 GM OINTMENT TP SCH (08:36)
[2022-09-12] MEDS: BENZTROPINE MESYLATE 2 MG TABLET PO SCH (20:07)
[2022-09-12] MEDS: ATORVASTATIN CALCIUM 40 MG TABLET PO SCH (20:07)
[2022-09-13] MEDS: MetFORMIN HCL 500 MG TABLET PO SCH ×2 (06:16→17:00)
[2022-09-13] MEDS: LISINOPRIL 10 MG TABLET PO SCH (08:12)
[2022-09-13] MEDS: AmLODIPine BESYLATE 2.5 MG TABLET PO SCH (08:12)
[2022-09-13] MEDS: OLANZapine 10 MG TABLET PO SCH ×2 (08:12→20:26)
[2022-09-13] MEDS: PredniSONE 20 MG TABLET PO SCH (08:13)
[2022-09-13] MEDS: PIOGLITAZONE HCL 15 MG TABLET PO SCH (08:13)
[2022-09-13] MEDS: HYDROCORTISONE 1% 30 GM OINTMENT TP SCH (08:14)
[2022-09-13 08:22] VITALS: BP 126/79
[2022-09-13 20:00] VITALS: BP 127/63
[2022-09-13] MEDS: BENZTROPINE MESYLATE 2 MG TABLET PO SCH (20:26)
[2022-09-13] MEDS: ATORVASTATIN CALCIUM 40 MG TABLET PO SCH (20:26)
[2022-09-14] MEDS: ZOLPIDEM TARTRATE 10 MG TABLET PO PRN ×2 (02:17→20:06)
[2022-09-14] MEDS: MetFORMIN HCL 500 MG TABLET PO SCH ×2 (06:19→16:36)
[2022-09-14 08:11] VITALS: BP 122/80
[2022-09-14] MEDS: OLANZapine 10 MG TABLET PO SCH ×2 (08:40→20:02)
[2022-09-14] MEDS: HYDROCORTISONE 1% 30 GM OINTMENT TP SCH (08:41)
[2022-09-14] MEDS: PIOGLITAZONE HCL 15 MG TABLET PO SCH (08:41)
[2022-09-14] MEDS: PredniSONE 20 MG TABLET PO SCH (08:41)
[2022-09-14] MEDS: AmLODIPine BESYLATE 2.5 MG TABLET PO SCH (08:41)
[2022-09-14] MEDS: LISINOPRIL 10 MG TABLET PO SCH (08:41)
[2022-09-14] MEDS: BENZTROPINE MESYLATE 2 MG TABLET PO SCH (20:02)
[2022-09-14] MEDS: ATORVASTATIN CALCIUM 40 MG TABLET PO SCH (20:02)
[2022-09-14 20:48] VITALS: BP 126/62
[2022-09-15] MEDS: MetFORMIN HCL 500 MG TABLET PO SCH ×2 (06:18→16:04)
[2022-09-15 08:06] VITALS: BP 129/74
[2022-09-15] MEDS: AmLODIPine BESYLATE 2.5 MG TABLET PO SCH (08:21)
[2022-09-15] MEDS: PredniSONE 20 MG TABLET PO SCH (08:21)
[2022-09-15] MEDS: OLANZapine 10 MG TABLET PO SCH ×2 (08:21→21:21)
[2022-09-15] MEDS: HYDROCORTISONE 1% 30 GM OINTMENT TP SCH (08:21)
[2022-09-15] MEDS: PIOGLITAZONE HCL 15 MG TABLET PO SCH (08:21)
[2022-09-15] MEDS: LISINOPRIL 10 MG TABLET PO SCH (08:21)
[2022-09-15 20:13] VITALS: BP 124/68
[2022-09-15] MEDS: BENZTROPINE MESYLATE 2 MG TABLET PO SCH (21:21)
[2022-09-15] MEDS: ATORVASTATIN CALCIUM 40 MG TABLET PO SCH (21:21)
[2022-09-16] MEDS: MetFORMIN HCL 500 MG TABLET PO SCH ×2 (06:43→16:48)
[2022-09-16] MEDS: PIOGLITAZONE HCL 15 MG TABLET PO SCH (08:11)
[2022-09-16] MEDS: OLANZapine 10 MG TABLET PO SCH ×2 (08:11→20:23)
[2022-09-16] MEDS: PredniSONE 20 MG TABLET PO SCH (08:11)
[2022-09-16] MEDS: AmLODIPine BESYLATE 2.5 MG TABLET PO SCH (08:11)
[2022-09-16] MEDS: LISINOPRIL 10 MG TABLET PO SCH (08:11)
[2022-09-16] MEDS: HYDROCORTISONE 1% 30 GM OINTMENT TP SCH (08:12)
[2022-09-16 20:03] VITALS: BP 125/70
[2022-09-16] MEDS: ATORVASTATIN CALCIUM 40 MG TABLET PO SCH (20:23)
[2022-09-16] MEDS: BENZTROPINE MESYLATE 2 MG TABLET PO SCH (20:23)
[2022-09-17] MEDS: MetFORMIN HCL 500 MG TABLET PO SCH ×2 (06:39→16:56)
[2022-09-17] MEDS: PredniSONE 20 MG TABLET PO SCH (09:33)
[2022-09-17] MEDS: PIOGLITAZONE HCL 15 MG TABLET PO SCH (09:33)
[2022-09-17] MEDS: AmLODIPine BESYLATE 2.5 MG TABLET PO SCH (09:33)
[2022-09-17] MEDS: OLANZapine 10 MG TABLET PO SCH ×2 (09:34→20:10)
[2022-09-17] MEDS: LISINOPRIL 10 MG TABLET PO SCH (09:34)
[2022-09-17] MEDS: HYDROCORTISONE 1% 30 GM OINTMENT TP SCH (09:34)
[2022-09-17] MEDS: ATORVASTATIN CALCIUM 40 MG TABLET PO SCH (20:10)
[2022-09-17] MEDS: BENZTROPINE MESYLATE 2 MG TABLET PO SCH (20:11)
[2022-09-17] MEDS: ZOLPIDEM TARTRATE 10 MG TABLET PO PRN (23:04)
[2022-09-18] MEDS: MetFORMIN HCL 500 MG TABLET PO SCH ×2 (06:35→16:51)
[2022-09-18 08:09] VITALS: BP 139/91
[2022-09-18] MEDS: PredniSONE 20 MG TABLET PO SCH (09:06)
[2022-09-18] MEDS: HYDROCORTISONE 1% 30 GM OINTMENT TP SCH (09:06)
[2022-09-18] MEDS: OLANZapine 10 MG TABLET PO SCH ×2 (09:07→20:14)
[2022-09-18] MEDS: LISINOPRIL 10 MG TABLET PO SCH (09:07)
[2022-09-18] MEDS: AmLODIPine BESYLATE 2.5 MG TABLET PO SCH (09:07)
[2022-09-18] MEDS: PIOGLITAZONE HCL 15 MG TABLET PO SCH (09:07)
[2022-09-18] MEDS: BENZTROPINE MESYLATE 2 MG TABLET PO SCH (20:14)
[2022-09-18] MEDS: ATORVASTATIN CALCIUM 40 MG TABLET PO SCH (20:14)
[2022-09-19] MEDS: MetFORMIN HCL 500 MG TABLET PO SCH ×2 (06:03→16:48)
[2022-09-19 06:19] VITALS: BP 111/59
[2022-09-19 08:21] VITALS: BP 128/79
[2022-09-19] MEDS: AmLODIPine BESYLATE 2.5 MG TABLET PO SCH (08:47)
[2022-09-19] MEDS: PredniSONE 20 MG TABLET PO SCH (08:48)
[2022-09-19] MEDS: OLANZapine 10 MG TABLET PO SCH ×2 (08:48→20:08)
[2022-09-19] MEDS: LISINOPRIL 10 MG TABLET PO SCH (08:48)
[2022-09-19] MEDS: PIOGLITAZONE HCL 15 MG TABLET PO SCH (08:48)
[2022-09-19] MEDS: HYDROCORTISONE 1% 30 GM OINTMENT TP SCH (08:49)
[2022-09-19] MEDS: BENZTROPINE MESYLATE 2 MG TABLET PO SCH (20:08)
[2022-09-19] MEDS: ATORVASTATIN CALCIUM 40 MG TABLET PO SCH (20:08)
[2022-09-20 04:24] VITALS: BP 118/68
[2022-09-20 04:41] LABS: GLUCOMETER DEV NAME(LOC) POC.BV
[2022-09-20] MEDS: MetFORMIN HCL 500 MG TABLET PO SCH ×2 (06:37→16:03)
[2022-09-20 08:06] VITALS: BP 110/55
[2022-09-20] MEDS: PredniSONE 20 MG TABLET PO SCH (08:14)
[2022-09-20] MEDS: LISINOPRIL 10 MG TABLET PO SCH (08:14)
[2022-09-20] MEDS: PIOGLITAZONE HCL 15 MG TABLET PO SCH (08:14)
[2022-09-20] MEDS: HYDROCORTISONE 1% 30 GM OINTMENT TP SCH (08:14)
[2022-09-20] MEDS: OLANZapine 10 MG TABLET PO SCH ×2 (08:14→20:13)
[2022-09-20] MEDS: AmLODIPine BESYLATE 2.5 MG TABLET PO SCH (09:25)
[2022-09-20 20:09] VITALS: BP 107/69
[2022-09-20] MEDS: BENZTROPINE MESYLATE 2 MG TABLET PO SCH (20:13)
[2022-09-20] MEDS: ATORVASTATIN CALCIUM 40 MG TABLET PO SCH (20:13)
[2022-09-21] MEDS: MetFORMIN HCL 500 MG TABLET PO SCH ×2 (06:33→16:52)
[2022-09-21 08:02] VITALS: BP 118/74
[2022-09-21] MEDS: PIOGLITAZONE HCL 15 MG TABLET PO SCH (08:18)
[2022-09-21] MEDS: HYDROCORTISONE 1% 30 GM OINTMENT TP SCH (08:19)
[2022-09-21] MEDS: OLANZapine 10 MG TABLET PO SCH ×2 (08:19→20:22)
[2022-09-21] MEDS: AmLODIPine BESYLATE 2.5 MG TABLET PO SCH (08:19)
[2022-09-21] MEDS: LISINOPRIL 10 MG TABLET PO SCH (08:19)
[2022-09-21] MEDS: PredniSONE 20 MG TABLET PO SCH (08:21)
[2022-09-21] MEDS: SERTRALINE HCL 50 MG TABLET PO SCH (10:47)
[2022-09-21 20:03] VITALS: BP 108/60
[2022-09-21] MEDS: BENZTROPINE MESYLATE 2 MG TABLET PO SCH (20:22)
[2022-09-21] MEDS: ATORVASTATIN CALCIUM 40 MG TABLET PO SCH (20:22)
[2022-09-22] MEDS: MetFORMIN HCL 500 MG TABLET PO SCH ×2 (06:47→16:18)
[2022-09-22] MEDS: HYDROCORTISONE 1% 30 GM OINTMENT TP SCH (09:00)
[2022-09-22] MEDS: PredniSONE 20 MG TABLET PO SCH (09:08)
[2022-09-22] MEDS: AmLODIPine BESYLATE 2.5 MG TABLET PO SCH (09:08)
[2022-09-22] MEDS: SERTRALINE HCL 50 MG TABLET PO SCH (09:08)
[2022-09-22] MEDS: OLANZapine 10 MG TABLET PO SCH ×2 (09:08→20:18)
[2022-09-22] MEDS: PIOGLITAZONE HCL 15 MG TABLET PO SCH (09:08)
[2022-09-22] MEDS: LISINOPRIL 10 MG TABLET PO SCH (09:08)
[2022-09-22 20:03] VITALS: BP 116/70
[2022-09-22] MEDS: ATORVASTATIN CALCIUM 40 MG TABLET PO SCH (20:18)
[2022-09-22] MEDS: BENZTROPINE MESYLATE 2 MG TABLET PO SCH (20:18)
[2022-09-22] MEDS: ZOLPIDEM TARTRATE 10 MG TABLET PO PRN (21:00)
[2022-09-23] MEDS: MetFORMIN HCL 500 MG TABLET PO SCH ×2 (06:56→16:07)
[2022-09-23 08:09] VITALS: BP 121/84
[2022-09-23] MEDS: SERTRALINE HCL 50 MG TABLET PO SCH (08:19)
[2022-09-23] MEDS: AmLODIPine BESYLATE 2.5 MG TABLET PO SCH (08:19)
[2022-09-23] MEDS: OLANZapine 10 MG TABLET PO SCH ×2 (08:19→20:14)
[2022-09-23] MEDS: PIOGLITAZONE HCL 15 MG TABLET PO SCH (08:20)
[2022-09-23] MEDS: LISINOPRIL 10 MG TABLET PO SCH (08:20)
[2022-09-23] MEDS: PredniSONE 20 MG TABLET PO SCH (08:21)
[2022-09-23] MEDS: HYDROCORTISONE 1% 30 GM OINTMENT TP SCH (08:22)
[2022-09-23] MEDS ORDERED: PERMETHRIN 1% 60 ML LOTION TP ONE (15:45)
[2022-09-23] MEDS: ATORVASTATIN CALCIUM 40 MG TABLET PO SCH (20:14)
[2022-09-23] MEDS: BENZTROPINE MESYLATE 2 MG TABLET PO SCH (20:14)
[2022-09-23 20:20] VITALS: BP 103/64
[2022-09-24] MEDS: MetFORMIN HCL 500 MG TABLET PO SCH ×2 (06:40→16:33)
[2022-09-24] MEDS ORDERED: MINERAL OIL 90 ML BOTTLE TP PRN (08:00)
[2022-09-24 08:25] VITALS: BP 129/83
[2022-09-24] MEDS: SERTRALINE HCL 50 MG TABLET PO SCH (08:36)
[2022-09-24] MEDS: OLANZapine 10 MG TABLET PO SCH ×2 (08:36→20:11)
[2022-09-24] MEDS: LISINOPRIL 10 MG TABLET PO SCH (08:36)
[2022-09-24] MEDS: PredniSONE 20 MG TABLET PO SCH (08:36)
[2022-09-24] MEDS: AmLODIPine BESYLATE 2.5 MG TABLET PO SCH (08:36)
[2022-09-24] MEDS: PIOGLITAZONE HCL 15 MG TABLET PO SCH (08:36)
[2022-09-24] MEDS: HYDROCORTISONE 1% 30 GM OINTMENT TP SCH (08:37)
[2022-09-24] MEDS ORDERED: IVERMECTIN 3 MG TABLET PO SCH (09:00)
[2022-09-24] MEDS: ATORVASTATIN CALCIUM 40 MG TABLET PO SCH (20:11)
[2022-09-24] MEDS: BENZTROPINE MESYLATE 2 MG TABLET PO SCH (20:11)
[2022-09-24 20:19] VITALS: BP 102/69
[2022-09-25] MEDS: MetFORMIN HCL 500 MG TABLET PO SCH ×2 (06:24→16:56)
[2022-09-25 08:05] VITALS: BP 122/84
[2022-09-25] MEDS: PIOGLITAZONE HCL 15 MG TABLET PO SCH (08:40)
[2022-09-25] MEDS: OLANZapine 10 MG TABLET PO SCH ×2 (08:40→20:07)
[2022-09-25] MEDS: PredniSONE 20 MG TABLET PO SCH (08:40)
[2022-09-25] MEDS: AmLODIPine BESYLATE 2.5 MG TABLET PO SCH (08:41)
[2022-09-25] MEDS: HYDROCORTISONE 1% 30 GM OINTMENT TP SCH (08:41)
[2022-09-25] MEDS: LISINOPRIL 10 MG TABLET PO SCH (08:41)
[2022-09-25] MEDS: SERTRALINE HCL 50 MG TABLET PO SCH (08:41)
[2022-09-25 20:03] VITALS: BP 109/65
[2022-09-25] MEDS: ATORVASTATIN CALCIUM 40 MG TABLET PO SCH (20:07)
[2022-09-25] MEDS: ZOLPIDEM TARTRATE 10 MG TABLET PO PRN (20:07)
[2022-09-25] MEDS: BENZTROPINE MESYLATE 2 MG TABLET PO SCH (20:07)
[2022-09-26] MEDS: MetFORMIN HCL 500 MG TABLET PO SCH (06:47)
[2022-09-26 08:10] VITALS: BP 123/79
[2022-09-26] MEDS: PredniSONE 20 MG TABLET PO SCH (09:29)
[2022-09-26] MEDS: SERTRALINE HCL 50 MG TABLET PO SCH (09:29)
[2022-09-26] MEDS: LISINOPRIL 10 MG TABLET PO SCH (09:29)
[2022-09-26] MEDS: PIOGLITAZONE HCL 15 MG TABLET PO SCH (09:29)
[2022-09-26] MEDS: OLANZapine 10 MG TABLET PO SCH (09:29)
[2022-09-26] MEDS: AmLODIPine BESYLATE 2.5 MG TABLET PO SCH (09:29)
[2022-09-26] MEDS: HYDROCORTISONE 1% 30 GM OINTMENT TP SCH (09:32)
[2022-09-26] MEDS ORDERED: AMLO2.5T96 PO (10:20)
[2022-09-26] MEDS ORDERED: PIOG15TA6 PO ×2 (10:20→10:29)
[2022-09-26] MEDS ORDERED: LISI-893 PO (10:20)
[2022-09-26] MEDS ORDERED: METF-1211 PO ×2 (10:20→10:28)
[2022-09-26] MEDS ORDERED: ATOR40TA71 PO (10:20)
[2022-09-26] MEDS ORDERED: ATOR40TA28 PO (10:28)
[2022-09-26] MEDS ORDERED: PRED-554 PO (10:29)
[2022-09-26] MEDS ORDERED: LISI-661 PO (10:30)
[2022-09-26] MEDS ORDERED: IVER3TAB PO (10:32)
[2022-09-26] MEDS ORDERED: SERT20OR PO (10:42)
[2022-09-26] MEDS ORDERED: OLAN10 PO (13:53)
[2022-09-26] MEDS ORDERED: SERT-439 PO (13:53)
== END 2022-09-26 14:24 | disposition home or self-care (01) | DRG 750 ==
LOC: EMS 08:40 → B2S 12:13 → B3A 08-13 17:40
PROVIDERS: ADMIT Psychiatry & Neurology Psychiatry; ATTEND Psychiatry & Neurology Psychiatry
DX: F25.0 Schizoaffective disorder, bipolar type (principal); R45.851 Suicidal ideations; Z20.822 Contact with and (suspected) exposure to COVID-19; E11.65 Type 2 diabetes mellitus with hyperglycemia; E78.00 Pure hypercholesterolemia, unspecified; F15.10 Other stimulant abuse, uncomplicated; F31.9 Bipolar disorder, unspecified; E66.01 Morbid (severe) obesity due to excess calories; F94.0 Selective mutism; I10 Essential (primary) hypertension; L40.9 Psoriasis, unspecified; Z59.00 Homelessness unspecified; Z88.0 Allergy status to penicillin; Z88.5 Allergy status to narcotic agent; Z68.42 Body mass index [BMI] 45.0-49.9, adult; Z28.21 Immunization not carried out because of patient refusal; Z79.899 Other long term (current) drug therapy
CPT/HCPCS: 30903; 80053; 80061; 83036; 84439; 84443; 87081; 99285; G0480; J1630; J3535

== ENCOUNTER 2023-11-12 15:59 | Inpatient (IN) | payer MEDICAID, OTHER ==
[~2023-11-12] VITALS: Ht 154.9 cm; Wt 105.7 kg
[~2023-11-12 15:59] MED LIST changes: -ATOR10TA PO; +ATOR40TA28 PO; +ATOR40TA71 PO; +BENZ2TAB71 PO; -BENZ2TAB76 PO; +IVER3TAB PO; +LISI-661 PO; +LISI-893 PO; +OLAN10 PO; +PIOG15TA6 PO; +PRED-554 PO; +SERT-439 PO; +SERT20OR PO
[2023-11-12 16:43] LABS: COVID AG,FIA SOURCE NASAL SWAB
[2023-11-12 16:55] LABS: BASOPHILS % (AUTO) 0.7 % (0.0-2.0); EOSINOPHILS % (AUTO) 0.8 % (1.0-6.0); HEMATOCRIT 42.9 % (36-46); HEMOGLOBIN 14.3 g/dL (12.0-16.0); LYMPHOCYTES # (AUTO) 3.7 K/uL (1.0-4.8); LYMPHOCYTES % (AUTO) 19.4 % (22.0-44.0); MEAN CORPUSCULAR HGB CONC 33.4 G/dL (31.0-37.0); MEAN CORPUSCULAR VOLUME 90 fL (80-100); MONOCYTES % (AUTO) 5.3 % (2.0-9.0); NEUTROPHILS # (AUTO) 14.1 K/uL (1.8-7.7); NEUTROPHILS % (AUTO) 73.8 % (40.0-70.0); PLATELET COUNT (AUTO) 253 K/uL (150-450); RED BLOOD CELL COUNT(AUTO) 4.77 MIL/uL (4.00-5.20); RED CELL DISTRIBUTION WIDTH 12.8 % (11.5-14.5); WHITE BLOOD COUNT (AUTO) 19.1 K/uL (4.5-11.0)
[2023-11-12 16:59] LABS: ANION GAP 8 mmol/L (8-16); CALCIUM, TOTAL 9.3 mg/dL (8.8-10.5); CARBON DIOXIDE 30 mmol/L (22-29); CHLORIDE 95 mmol/L (98-107); CREATININE 0.67 mg/dL (0.60-1.30); GLOMERULAR FILTR. RATE CALC > 60 mL/min (>60); GLUCOSE,RANDOM 209 mg/dL (70-110); POTASSIUM 3.8 mmol/L (3.5-5.1); SODIUM SERUM 133 mmol/L (136-145); UREA NITROGEN, BLOOD 11 mg/dL (7-18)
[2023-11-12 17:03] LABS: ALCOHOL, BLOOD (SERUM) < 3 mg/dL (0-10)
[2023-11-12 17:05] LABS: ALANINE AMINOTRANSFERASE 22 U/L (12-78); ALBUMIN 3.3 g/dL (3.4-5.0); ALKALINE PHOSPHATASE 131 U/L (46-116); ASPARTATE AMINOTRANSFERASE 12 U/L (15-37); BILIRUBIN,TOTAL 0.3 mg/dL (0.1-1.0); TOTAL PROTEIN, SERUM 7.7 g/dL (6.4-8.2)
[2023-11-12 17:09] LABS: SARS-COV2 (COVID) ANTIGEN,FIA Negative (Negative)
[2023-11-12 18:33] LABS: APPEARANCE,URINE HAZY (CLEAR); BILIRUBIN,URINE NEGATIVE (NEGATIVE); COLOR,URINE LIGHT YELLOW (YELLOW); GLUCOSE, URINE (UA) 150-200 mg/dL (NEGATIVE); KETONES,URINE NEGATIVE (NEGATIVE); LEUKOCYTE ESTERASE ,URINE SMALL (NEGATIVE); NITRATE,URINE NEGATIVE (NEGATIVE); OCCULT BLOOD,URINE NEGATIVE (NEGATIVE); PROTEIN,URINE NEGATIVE (NEGATIVE); UROBILINOGEN,URINE <=1.0 mg/dL (<=1.0)
[2023-11-12 18:41] LABS: AMPHET/METH SCREEN,URINE NEGATIVE (NEGATIVE); BARBITURATE SCREEN, URINE NEGATIVE (NEGATIVE); BENZODIAZEPINES SCREEN,URINE NEGATIVE (NEGATIVE); CANNABINOID SCREEN,URINE NEGATIVE (NEGATIVE); COCAINE SCREEN,URINE NEGATIVE (NEGATIVE); METHADONE SCREEN, URINE NEGATIVE (NEGATIVE); OPIATE SCREEN,URINE NEGATIVE (NEGATIVE); PHENCYCLIDINE SCREEN,URINE NEGATIVE (NEGATIVE)
[2023-11-12] MEDS: OLANZapine 5 MG RAPDIS TABLET PO PRN (18:42)
[2023-11-12] MEDS: LORazepam 2 MG TABLET PO PRN (18:42)
[2023-11-12] MEDS: ZOLPIDEM TARTRATE 10 MG TABLET PO PRN (18:42)
[2023-11-12 18:46] LABS: ALCOHOL, URINE DRUG SCREEN NEGATIVE (NEGATIVE)
[2023-11-12 19:13] LABS: SQUAMOUS EPITHELIAL CELL,UR Few /LPF (None Seen)
[2023-11-12 19:14] LABS: BACTERIA,URINE Moderate /HPF (None Seen); RBC,URINE None Seen /HPF (0-2)
[2023-11-13 03:45] VITALS: BP 145/95; PULSE 86; RESP 16; TEMP 98
[2023-11-13 03:51] VITALS: BP 145/95; PULSE 86; RESP 16; TEMP 98; O2SAT 96
[2023-11-13 08:11] VITALS: RESP 18
[2023-11-13] MEDS ORDERED: PROMETHAZINE HCL 25 MG TABLET PO PRN (10:45)
[2023-11-13] MEDS ORDERED: MAGNESIUM HYDROXIDE SUSPENSION 30 ML UDCUP PO PRN (10:45)
[2023-11-13] MEDS ORDERED: GuaiFENesin/D-METHORPHAN [SUGAR-FREE] 200-20MG/10 ML SYRUP UDCUP PO PRN (10:45)
[2023-11-13] MEDS ORDERED: TUBERCULIN, PURIFIED PROTEIN DERIVATIVE 5 TU/0.1 ML SYRINGE ID ONE (10:45)
[2023-11-13] MEDS ORDERED: MAG HYDROX/ALUMINUM HYD/SIMETH ES 30 ML SUSPENSION UDCUP PO PRN (10:45)
[2023-11-13] MEDS ORDERED: HydrOXYzine PAMOATE 50 MG CAPSULE PO PRN (10:45)
[2023-11-13] MEDS ORDERED: LOPERAMIDE HCL 2 MG CAPSULE PO PRN (10:45)
[2023-11-13] MEDS ORDERED: NITROFURANTOIN MONOHYD/M-CRYST 100 MG CAPSULE [MACROBID] PO SCH (10:45)
[2023-11-13] MEDS ORDERED: ACETAMINOPHEN 325 MG TABLET PO PRN (10:45)
[2023-11-13] MEDS ORDERED: GLUCAGON,HUMAN RECOMBINANT 1 MG VIAL IM PRN (11:15)
[2023-11-13] MEDS: LISINOPRIL 10 MG TABLET PO SCH (11:45)
[2023-11-13] MEDS: AmLODIPine BESYLATE 2.5 MG TABLET PO SCH (11:45)
[2023-11-13] MEDS: PIOGLITAZONE HCL 15 MG TABLET PO SCH (11:45)
[2023-11-13] MEDS: NITROFURANTOIN MONOHYD/M-CRYST 100 MG CAPSULE [MACROBID] PO SCH (12:04)
[2023-11-13] MEDS: AZITHROMYCIN 250 MG TABLET PO ONE (12:04)
[2023-11-13] MEDS ORDERED: HALOPERIDOL LACTATE 5 MG/ML VIAL IM PRN (15:30)
[2023-11-13] MEDS: THIAMINE 100 MG TABLET PO SCH (16:58)
[2023-11-13] MEDS: MetFORMIN HCL 500 MG TABLET PO SCH (16:58)
[2023-11-13] MEDS: ATORVASTATIN CALCIUM 40 MG TABLET PO SCH (21:00)
[2023-11-13] MEDS: OLANZapine 5 MG RAPDIS TABLET PO SCH (21:00)
[2023-11-13] MEDS: MELATONIN 5 MG TABLET PO SCH (21:00)
[2023-11-13 22:33] VITALS: RESP 16; O2SAT 99
[2023-11-14 08:09] VITALS: RESP 16
[2023-11-14] MEDS: AZITHROMYCIN 250 MG TABLET PO SCH (08:49)
[2023-11-14] MEDS: FOLIC ACID 1 MG TABLET PO SCH (09:00)
[2023-11-14] MEDS: BuPROPion HCL XL 150 MG ER TABLET PO SCH (09:00)
[2023-11-14] MEDS: OMEGA-3/DHA/EPA/FISH OIL 1,000 MG CAPSULE PO SCH (09:00)
[2023-11-14] MEDS: NALTREXONE HCL 50 MG TABLET PO SCH (09:00)
[2023-11-14] MEDS: MULTIVITAMINS WITH MINERALS, THERAPEUTIC TABLET PO SCH (09:00)
[2023-11-14 20:24] VITALS: BP 129/74; PULSE 83; RESP 18; TEMP 98.2; O2SAT 96
[2023-11-15 08:36] VITALS: BP 121/78; PULSE 96; RESP 16; TEMP 97.5; O2SAT 96
[2023-11-15] MEDS: CloZAPine 25 MG TABLET PO SCH (09:00)
[2023-11-15] MEDS: INSULIN LISPRO 100 UNITS/ML SQ PRN (11:38)
[2023-11-15 12:26] LABS: GLUCOMETER DEV NAME(LOC) BV3S.; GLUCOSE,POINT OF CARE 212 MG/DL (70-110)
[2023-11-15] MEDS ORDERED: GLUCAGON,HUMAN RECOMBINANT 1 MG VIAL IM PRN (13:00)
[2023-11-15 20:12] VITALS: BP 145/81; PULSE 91; RESP 18; TEMP 96.5; O2SAT 94
[2023-11-16 06:06] LABS: GLUCOMETER DEV NAME(LOC) BV3S.; GLUCOSE,POINT OF CARE 173 MG/DL (70-110)
[2023-11-16] MEDS: CloZAPine 25 MG TABLET PO SCH ×2 (08:38→20:48)
[2023-11-16 16:41] LABS: GLUCOMETER DEV NAME(LOC) BV3S.; GLUCOSE,POINT OF CARE 117 MG/DL (70-110)
[2023-11-16 23:00] VITALS: RESP 18
[2023-11-17] MEDS: CloZAPine 25 MG TABLET PO SCH ×2 (08:21→21:00)
[2023-11-17 08:23] VITALS: BP 114/69; PULSE 80; RESP 16; TEMP 97.6; O2SAT 97
[2023-11-17 11:56] LABS: GLUCOMETER DEV NAME(LOC) BV3S.; GLUCOSE,POINT OF CARE 207 MG/DL (70-110)
[2023-11-17 20:34] VITALS: TEMP 97.6
[2023-11-18 08:11] VITALS: RESP 18
[2023-11-18] MEDS: CloZAPine 25 MG TABLET PO SCH (09:00)
[2023-11-18 20:06] VITALS: RESP 17
[2023-11-18] MEDS: ChlorproMAZINE HCL 50 MG/2 ML AMP IM PRN (21:20)
[2023-11-19 08:39] LABS: BASOPHILS % (AUTO) 0.5 % (0.0-2.0); EOSINOPHILS % (AUTO) 1.4 % (1.0-6.0); HEMATOCRIT 42.4 % (36-46); HEMOGLOBIN 14.4 g/dL (12.0-16.0); LYMPHOCYTES # (AUTO) 2.7 K/uL (1.0-4.8); LYMPHOCYTES % (AUTO) 21.1 % (22.0-44.0); MEAN CORPUSCULAR HEMOGLOBIN 30.2 pg (26.0-34.0); MEAN CORPUSCULAR HGB CONC 33.9 G/dL (31.0-37.0); MEAN CORPUSCULAR VOLUME 89 fL (80-100); MONOCYTES # (AUTO) 0.5 K/uL (0.1-1.0); NEUTROPHILS # (AUTO) 9.4 K/uL (1.8-7.7); PLATELET COUNT (AUTO) 216 K/uL (150-450); RED BLOOD CELL COUNT(AUTO) 4.77 MIL/uL (4.00-5.20); RED CELL DISTRIBUTION WIDTH 12.5 % (11.5-14.5); WHITE BLOOD COUNT (AUTO) 12.9 K/uL (4.5-11.0)
[2023-11-19 08:56] LABS: ALANINE AMINOTRANSFERASE 17 U/L (12-78); ALBUMIN 2.8 g/dL (3.4-5.0); ALKALINE PHOSPHATASE 124 U/L (46-116); ANION GAP 8 mmol/L (8-16); ASPARTATE AMINOTRANSFERASE 11 U/L (15-37); BILIRUBIN,TOTAL 0.4 mg/dL (0.1-1.0); CALCIUM, TOTAL 9.1 mg/dL (8.8-10.5); CARBON DIOXIDE 30 mmol/L (22-29); CHLORIDE 96 mmol/L (98-107); CHOL/HDL RATIO 6.3 (3.9-5.7); CHOLESTEROL 233 mg/dL (131-200); CREATININE 0.63 mg/dL (0.60-1.30); GLOMERULAR FILTR. RATE CALC > 60 mL/min (>60); GLUCOSE,RANDOM 259 mg/dL (70-110); HDL CHOLESTEROL 37 mg/dL (40-60); LDL CHOL (CALC.) 136 mg/dL (0-130); SODIUM SERUM 134 mmol/L (136-145); TOTAL PROTEIN, SERUM 7.3 g/dL (6.4-8.2); TRIGLYCERIDES 302 mg/dL (15-150); UREA NITROGEN, BLOOD 11 mg/dL (7-18)
[2023-11-19 09:33] LABS: THYROID STIMULATING HORMONE 3.86 uIU/mL (0.36-3.74)
[2023-11-19] MEDS: FluPHENAZine HCL 2.5 MG/ML INJ IM PRN (20:43)
[2023-11-19 22:40] VITALS: RESP 16
[2023-11-20 08:13] VITALS: BP 132/74; PULSE 89; RESP 16; TEMP 98; O2SAT 99
[2023-11-20] MEDS: CloZAPine 25 MG TABLET PO SCH (08:38)
[2023-11-20 20:14] VITALS: RESP 16
[2023-11-20] MEDS: CloZAPine 100 MG TABLET PO SCH (21:10)
[2023-11-21 08:18] VITALS: BP 122/83; PULSE 90; RESP 18; TEMP 98.6; O2SAT 99
[2023-11-21] MEDS: CloZAPine 25 MG TABLET PO SCH (08:42)
[2023-11-21] MEDS: CloZAPine 100 MG TABLET PO SCH (20:35)
[2023-11-21 23:53] VITALS: RESP 16
[2023-11-22 08:11] VITALS: BP 122/74; PULSE 92; RESP 18; TEMP 98.3; O2SAT 99
[2023-11-22] MEDS: CloZAPine 25 MG TABLET PO SCH (08:33)
[2023-11-22] MEDS: CloZAPine 100 MG TABLET PO SCH (20:43)
[2023-11-22] MEDS: OLANZapine 10 MG RAPDIS TABLET PO SCH (20:43)
[2023-11-22 23:30] VITALS: RESP 18
[2023-11-23 08:34] VITALS: BP 143/87; PULSE 72; RESP 18; TEMP 97.7; O2SAT 96
[2023-11-23] MEDS: CloZAPine 100 MG TABLET PO SCH (10:11)
[2023-11-23 18:31] LABS: GLUCOMETER DEV NAME(LOC) BV3S.; GLUCOSE,POINT OF CARE 378 MG/DL (70-110)
[2023-11-23 20:28] VITALS: BP 118/64; PULSE 90; RESP 19; TEMP 98; O2SAT 99
[2023-11-23] MEDS: OLANZapine 5 MG RAPDIS TABLET PO SCH (21:17)
[2023-11-24] MEDS: INFLUENZA VIRUS VACCINE QVS 2023-24 (6MO+)/PF 60 MCG/0.5 ML SYRINGE IM. ONE (06:27)
[2023-11-24] MEDS: PNEUMOCOCCAL VACCINE POLYVALENT 0.5 ML SYRINGE [PPSV23] IM. ONE (06:28)
[2023-11-24] MEDS: INSULIN LISPRO 100 UNITS/ML SQ PRN (11:29)
[2023-11-24 11:36] LABS: GLUCOMETER DEV NAME(LOC) BV3S.; GLUCOSE,POINT OF CARE 181 MG/DL (70-110)
[2023-11-24 18:01] LABS: GLUCOMETER DEV NAME(LOC) BV3S.; GLUCOSE,POINT OF CARE 233 MG/DL (70-110)
[2023-11-25 06:17] VITALS: RESP 18
[2023-11-25] MEDS: CloZAPine 25 MG TABLET PO SCH (09:07)
[2023-11-25] MEDS: TRIAMCINOLONE 0.1% 15 GM OINTMENT TP SCH (09:08)
[2023-11-25 11:46] LABS: GLUCOMETER DEV NAME(LOC) BV3S.; GLUCOSE,POINT OF CARE 153 MG/DL (70-110)
[2023-11-25 19:58] VITALS: RESP 18
[2023-11-25] MEDS: CloZAPine 100 MG TABLET PO SCH (20:36)
[2023-11-25 21:51] VITALS: BP 101/57; PULSE 85; RESP 18; TEMP 97.8; O2SAT 99
[2023-11-26 08:25] VITALS: BP 122/69; PULSE 82; RESP 16; TEMP 98; O2SAT 97
[2023-11-26] MEDS: CloZAPine 25 MG TABLET PO SCH (09:03)
[2023-11-26 12:01] LABS: GLUCOMETER DEV NAME(LOC) BV3S.; GLUCOSE,POINT OF CARE 149 MG/DL (70-110)
[2023-11-26] MEDS: CloZAPine 100 MG TABLET PO SCH (20:25)
[2023-11-26 21:01] VITALS: RESP 16
[2023-11-27] MEDS: CloZAPine 100 MG TABLET PO SCH ×2 (08:15→20:11)
[2023-11-27 08:23] VITALS: BP 123/79; PULSE 79; RESP 16; TEMP 98.2; O2SAT 97
[2023-11-27 20:21] VITALS: RESP 16
[2023-11-27] MEDS ORDERED: CloZAPine 100 MG TABLET PO SCH (21:00)
[2023-11-28 08:09] VITALS: BP 118/79; PULSE 76; RESP 16; TEMP 97.8; O2SAT 98
[2023-11-28 17:06] LABS: GLUCOMETER DEV NAME(LOC) BV3S.; GLUCOSE,POINT OF CARE 287 MG/DL (70-110)
[2023-11-28 21:21] LABS: GLUCOMETER DEV NAME(LOC) BV3S.; GLUCOSE,POINT OF CARE 206 MG/DL (70-110)
[2023-11-28 22:14] VITALS: BP 103/50; PULSE 87; RESP 16; TEMP 98.2; O2SAT 95
[2023-11-29 08:22] VITALS: BP 119/74; PULSE 86; RESP 16; TEMP 98; O2SAT 99
[2023-11-29 16:41] LABS: GLUCOMETER DEV NAME(LOC) BV3S.; GLUCOSE,POINT OF CARE 198 MG/DL (70-110)
[2023-11-29 20:27] VITALS: RESP 18
[2023-11-29 21:36] LABS: GLUCOMETER DEV NAME(LOC) BV3S.; GLUCOSE,POINT OF CARE 258 MG/DL (70-110)
[2023-11-30] MEDS: ChlorproMAZINE HCL 50 MG/2 ML AMP IM ONE (04:30)
[2023-11-30] MEDS: LORazepam 2 MG/ML VIAL IM ONE (04:30)
[2023-11-30] MEDS: DiphenhydrAMINE HCL 50 MG/ML VIAL IM ONE (04:30)
[2023-11-30 07:26] LABS: BASOPHILS % (AUTO) 0.5 % (0.0-2.0); EOSINOPHILS % (AUTO) 1.6 % (1.0-6.0); HEMATOCRIT 39.3 % (36-46); HEMOGLOBIN 13.5 g/dL (12.0-16.0); LYMPHOCYTES # (AUTO) 2.9 K/uL (1.0-4.8); MEAN CORPUSCULAR HEMOGLOBIN 30.5 pg (26.0-34.0); MEAN CORPUSCULAR HGB CONC 34.4 G/dL (31.0-37.0); MEAN CORPUSCULAR VOLUME 89 fL (80-100); MONOCYTES # (AUTO) 0.8 K/uL (0.1-1.0); NEUTROPHILS # (AUTO) 11.3 K/uL (1.8-7.7); NEUTROPHILS % (AUTO) 73.9 % (40.0-70.0); PLATELET COUNT (AUTO) 253 K/uL (150-450); RED BLOOD CELL COUNT(AUTO) 4.43 MIL/uL (4.00-5.20); RED CELL DISTRIBUTION WIDTH 12.6 % (11.5-14.5); WHITE BLOOD COUNT (AUTO) 15.3 K/uL (4.5-11.0)
[2023-11-30 08:37] VITALS: BP 130/81; PULSE 68; RESP 18; TEMP 97.6; O2SAT 98
[2023-11-30 21:38] VITALS: RESP 16
[2023-12-01 08:17] VITALS: BP 122/79; PULSE 82; RESP 16; TEMP 98; O2SAT 99
[2023-12-01] MEDS: CIPROFLOXACIN HCL 500 MG TABLET PO SCH (08:50)
[2023-12-01 21:20] LABS: GLUCOMETER DEV NAME(LOC) BV3S.; GLUCOSE,POINT OF CARE 196 MG/DL (70-110)
[2023-12-02 01:32] VITALS: RESP 16; O2SAT 99
[2023-12-02 07:06] LABS: GLUCOMETER DEV NAME(LOC) BV3S.; GLUCOSE,POINT OF CARE 147 MG/DL (70-110)
[2023-12-02 08:07] VITALS: BP 122/74; PULSE 79; RESP 16; TEMP 98; O2SAT 97
[2023-12-03 05:03] VITALS: RESP 18; O2SAT 98
[2023-12-03 08:17] VITALS: BP 123/74; PULSE 80; RESP 16; TEMP 97.6; O2SAT 96
[2023-12-03 18:06] LABS: CLOZAPINE & NORCLOZAPINE 1094 ng/mL; NORCLOZAPINE 283 ng/mL (Not Estab.)
[2023-12-03 20:05] VITALS: BP 119/76; PULSE 78; RESP 17; TEMP 98
[2023-12-04 08:08] VITALS: BP 115/70; PULSE 71; RESP 18; TEMP 97.5; O2SAT 98
[2023-12-04 20:15] VITALS: BP 110/76; PULSE 16; RESP 16; TEMP 97.8; O2SAT 98
[2023-12-05] MEDS: CloZAPine 100 MG TABLET PO SCH (20:17)
[2023-12-06 08:27] VITALS: BP 110/81; PULSE 68; RESP 18; TEMP 98.2; O2SAT 99
[2023-12-06 08:39] LABS: BASOPHILS % (AUTO) 0.4 % (0.0-2.0); EOSINOPHILS % (AUTO) 1.9 % (1.0-6.0); HEMATOCRIT 40.4 % (36-46); HEMOGLOBIN 13.7 g/dL (12.0-16.0); LYMPHOCYTES # (AUTO) 2.7 K/uL (1.0-4.8); LYMPHOCYTES % (AUTO) 18.5 % (22.0-44.0); MEAN CORPUSCULAR HEMOGLOBIN 30.1 pg (26.0-34.0); MEAN CORPUSCULAR VOLUME 89 fL (80-100); MONOCYTES # (AUTO) 0.7 K/uL (0.1-1.0); MONOCYTES % (AUTO) 5.1 % (2.0-9.0); NEUTROPHILS # (AUTO) 10.6 K/uL (1.8-7.7); NEUTROPHILS % (AUTO) 74.1 % (40.0-70.0); PLATELET COUNT (AUTO) 255 K/uL (150-450); RED BLOOD CELL COUNT(AUTO) 4.57 MIL/uL (4.00-5.20); RED CELL DISTRIBUTION WIDTH 12.6 % (11.5-14.5); WHITE BLOOD COUNT (AUTO) 14.4 K/uL (4.5-11.0)
[2023-12-06 20:26] VITALS: BP 111/54; PULSE 88; TEMP 97.2; O2SAT 94
[2023-12-06 20:55] LABS: GLUCOMETER DEV NAME(LOC) BV3S.; GLUCOSE,POINT OF CARE 206 MG/DL (70-110)
[2023-12-06 22:31] VITALS: BP 135/76; PULSE 103; O2SAT 98
[2023-12-07 08:29] VITALS: RESP 16
[2023-12-07 20:10] VITALS: BP 131/82; PULSE 80; RESP 18; TEMP 97.8
[2023-12-08 08:34] VITALS: BP 128/74; PULSE 91; RESP 16; TEMP 98; O2SAT 99
[2023-12-08 21:36] VITALS: RESP 16
[2023-12-09 10:52] VITALS: RESP 18
[2023-12-09 20:23] VITALS: RESP 17
[2023-12-10 06:46] LABS: GLUCOMETER DEV NAME(LOC) BV3S.; GLUCOSE,POINT OF CARE 164 MG/DL (70-110)
[2023-12-10 08:33] VITALS: BP 129/78; PULSE 80; RESP 16; TEMP 97.6; O2SAT 98
[2023-12-10 13:41] LABS: GLUCOMETER DEV NAME(LOC) BV3S.; GLUCOSE,POINT OF CARE 144 MG/DL (70-110)
[2023-12-10] MEDS: CloZAPine 100 MG TABLET PO SCH (20:29)
[2023-12-10 21:51] VITALS: RESP 18
[2023-12-11 06:36] LABS: GLUCOMETER DEV NAME(LOC) BV3S.; GLUCOSE,POINT OF CARE 167 MG/DL (70-110)
[2023-12-11 08:15] VITALS: BP 128/74; PULSE 82; RESP 16; TEMP 98; O2SAT 97
[2023-12-11 12:11] LABS: GLUCOMETER DEV NAME(LOC) BV3S.; GLUCOSE,POINT OF CARE 205 MG/DL (70-110)
[2023-12-11 17:06] LABS: GLUCOMETER DEV NAME(LOC) BV3S.; GLUCOSE,POINT OF CARE 183 MG/DL (70-110)
[2023-12-11 23:29] VITALS: BP 106/52; PULSE 87; RESP 16; TEMP 97.8; O2SAT 98
[2023-12-12 06:01] LABS: GLUCOMETER DEV NAME(LOC) BV3S.; GLUCOSE,POINT OF CARE 165 MG/DL (70-110)
[2023-12-12 08:14] VITALS: BP 126/79; PULSE 83; RESP 16; TEMP 97.9; O2SAT 98
[2023-12-12 11:45] LABS: GLUCOMETER DEV NAME(LOC) BV3S.; GLUCOSE,POINT OF CARE 176 MG/DL (70-110)
[2023-12-12 16:55] LABS: GLUCOMETER DEV NAME(LOC) BV3S.; GLUCOSE,POINT OF CARE 185 MG/DL (70-110)
[2023-12-12 20:04] VITALS: BP 130/80; PULSE 95; RESP 18; TEMP 97.6; O2SAT 97
[2023-12-13 08:21] VITALS: BP 124/76; PULSE 82; RESP 16; TEMP 97.9; O2SAT 98
[2023-12-13 12:41] LABS: GLUCOMETER DEV NAME(LOC) BV3S.; GLUCOSE,POINT OF CARE 190 MG/DL (70-110)
[2023-12-13 17:21] LABS: GLUCOMETER DEV NAME(LOC) BV3S.; GLUCOSE,POINT OF CARE 199 MG/DL (70-110)
[2023-12-13 20:50] VITALS: RESP 18
[2023-12-13 21:06] LABS: GLUCOMETER DEV NAME(LOC) BV3S.; GLUCOSE,POINT OF CARE 193 MG/DL (70-110)
[2023-12-14 06:25] LABS: GLUCOMETER DEV NAME(LOC) BV3S.; GLUCOSE,POINT OF CARE 139 MG/DL (70-110)
[2023-12-14 08:06] VITALS: BP 107/60; PULSE 84; RESP 17; TEMP 97.7; O2SAT 95
[2023-12-14 08:30] LABS: BASOPHILS % (AUTO) 0.4 % (0.0-2.0); EOSINOPHILS % (AUTO) 1.9 % (1.0-6.0); HEMATOCRIT 40.2 % (36-46); HEMOGLOBIN 13.8 g/dL (12.0-16.0); LYMPHOCYTES # (AUTO) 2.9 K/uL (1.0-4.8); LYMPHOCYTES % (AUTO) 20.6 % (22.0-44.0); MEAN CORPUSCULAR HEMOGLOBIN 30.4 pg (26.0-34.0); MEAN CORPUSCULAR HGB CONC 34.3 G/dL (31.0-37.0); MEAN CORPUSCULAR VOLUME 89 fL (80-100); MONOCYTES # (AUTO) 0.7 K/uL (0.1-1.0); MONOCYTES % (AUTO) 5.2 % (2.0-9.0); NEUTROPHILS # (AUTO) 10.1 K/uL (1.8-7.7); NEUTROPHILS % (AUTO) 71.9 % (40.0-70.0); PLATELET COUNT (AUTO) 236 K/uL (150-450); RED BLOOD CELL COUNT(AUTO) 4.54 MIL/uL (4.00-5.20); RED CELL DISTRIBUTION WIDTH 12.8 % (11.5-14.5)
[2023-12-14 11:50] LABS: GLUCOMETER DEV NAME(LOC) BV3S.; GLUCOSE,POINT OF CARE 183 MG/DL (70-110)
[2023-12-14 18:26] LABS: GLUCOMETER DEV NAME(LOC) BV3S.; GLUCOSE,POINT OF CARE 272 MG/DL (70-110)
[2023-12-14 20:25] LABS: GLUCOMETER DEV NAME(LOC) BV3S.; GLUCOSE,POINT OF CARE 191 MG/DL (70-110)
[2023-12-14 20:39] VITALS: BP 95/58; PULSE 92; RESP 20; TEMP 97.7; O2SAT 95
[2023-12-15 08:07] VITALS: BP 129/82; PULSE 99; RESP 18; TEMP 98.9; O2SAT 98
[2023-12-15 11:46] LABS: GLUCOMETER DEV NAME(LOC) BV3S.; GLUCOSE,POINT OF CARE 175 MG/DL (70-110)
[2023-12-15 16:46] LABS: GLUCOMETER DEV NAME(LOC) BV3S.; GLUCOSE,POINT OF CARE 159 MG/DL (70-110)
[2023-12-15 20:32] VITALS: BP 105/62; PULSE 73; RESP 17; TEMP 98.2; O2SAT 99
[2023-12-15 20:45] LABS: GLUCOMETER DEV NAME(LOC) BV3S.; GLUCOSE,POINT OF CARE 130 MG/DL (70-110)
[2023-12-16 08:13] VITALS: BP 122/73; PULSE 82; RESP 16; TEMP 97.6; O2SAT 99
[2023-12-16 12:05] LABS: GLUCOMETER DEV NAME(LOC) BV3S.; GLUCOSE,POINT OF CARE 259 MG/DL (70-110)
[2023-12-16 16:56] LABS: GLUCOMETER DEV NAME(LOC) BV3S.; GLUCOSE,POINT OF CARE 196 MG/DL (70-110)
[2023-12-16 22:13] VITALS: BP 105/65; PULSE 96; RESP 17; TEMP 98; O2SAT 96
[2023-12-17 06:16] LABS: GLUCOMETER DEV NAME(LOC) BV3S.; GLUCOSE,POINT OF CARE 142 MG/DL (70-110)
[2023-12-17 08:28] VITALS: BP 123/74; PULSE 79; RESP 16; TEMP 98; O2SAT 98
[2023-12-17 11:31] LABS: GLUCOMETER DEV NAME(LOC) BV3S.; GLUCOSE,POINT OF CARE 188 MG/DL (70-110)
[2023-12-17 20:07] VITALS: RESP 20
[2023-12-18 05:07] LABS: CLOZAPINE & NORCLOZAPINE 613 ng/mL; NORCLOZAPINE 140 ng/mL (Not Estab.)
[2023-12-18] MEDS: MODAFINIL 100 MG TABLET PO SCH (08:25)
[2023-12-18 09:47] VITALS: BP 115/78; PULSE 82; RESP 18; TEMP 97.8; O2SAT 97
[2023-12-18 11:25] LABS: GLUCOMETER DEV NAME(LOC) BV3S.; GLUCOSE,POINT OF CARE 194 MG/DL (70-110)
[2023-12-18 16:40] LABS: GLUCOMETER DEV NAME(LOC) BV3S.; GLUCOSE,POINT OF CARE 251 MG/DL (70-110)
[2023-12-18 20:40] LABS: GLUCOMETER DEV NAME(LOC) BV3S.; GLUCOSE,POINT OF CARE 140 MG/DL (70-110)
[2023-12-18 21:37] VITALS: BP 104/68; PULSE 90; RESP 16; TEMP 98.5; O2SAT 96
[2023-12-19 06:10] LABS: GLUCOMETER DEV NAME(LOC) BV3S.; GLUCOSE,POINT OF CARE 127 MG/DL (70-110)
[2023-12-19 08:20] VITALS: BP 119/69; PULSE 79; RESP 16; TEMP 97.8; O2SAT 96
[2023-12-19] MEDS: MODAFINIL 100 MG TABLET PO SCH (08:43)
[2023-12-19 19:29] LABS: GLUCOMETER DEV NAME(LOC) BV3S.; GLUCOSE,POINT OF CARE 225 MG/DL (70-110)
[2023-12-19 19:29] LABS: GLUCOMETER DEV NAME(LOC) BV3S.; GLUCOSE,POINT OF CARE 226 MG/DL (70-110)
[2023-12-19 20:25] VITALS: BP 130/72; PULSE 95; RESP 18; TEMP 98.2; O2SAT 94
[2023-12-19 21:36] LABS: GLUCOMETER DEV NAME(LOC) BV3S.; GLUCOSE,POINT OF CARE 159 MG/DL (70-110)
[2023-12-20 06:40] LABS: GLUCOMETER DEV NAME(LOC) BV3S.; GLUCOSE,POINT OF CARE 124 MG/DL (70-110)
[2023-12-20] MEDS: MODAFINIL 100 MG TABLET PO SCH (08:33)
[2023-12-20 08:34] LABS: BASOPHILS % (AUTO) 0.4 % (0.0-2.0); EOSINOPHILS % (AUTO) 1.9 % (1.0-6.0); HEMATOCRIT 39.6 % (36-46); HEMOGLOBIN 13.4 g/dL (12.0-16.0); LYMPHOCYTES % (AUTO) 19.8 % (22.0-44.0); MEAN CORPUSCULAR HGB CONC 33.9 G/dL (31.0-37.0); MEAN CORPUSCULAR VOLUME 89 fL (80-100); MONOCYTES # (AUTO) 0.9 K/uL (0.1-1.0); MONOCYTES % (AUTO) 5.7 % (2.0-9.0); NEUTROPHILS % (AUTO) 72.2 % (40.0-70.0); PLATELET COUNT (AUTO) 222 K/uL (150-450); RED BLOOD CELL COUNT(AUTO) 4.47 MIL/uL (4.00-5.20); RED CELL DISTRIBUTION WIDTH 12.9 % (11.5-14.5); WHITE BLOOD COUNT (AUTO) 15.2 K/uL (4.5-11.0)
[2023-12-20 08:51] VITALS: BP 124/72; PULSE 79; RESP 16; TEMP 98; O2SAT 97
[2023-12-20 11:50] LABS: GLUCOMETER DEV NAME(LOC) BV3S.; GLUCOSE,POINT OF CARE 127 MG/DL (70-110)
[2023-12-20 16:46] LABS: GLUCOMETER DEV NAME(LOC) BV3S.; GLUCOSE,POINT OF CARE 259 MG/DL (70-110)
[2023-12-20] MEDS ORDERED: AZITHROMYCIN 500 MG TABLET PO ONE (17:15)
[2023-12-20] MEDS: AZITHROMYCIN 250 MG TABLET PO ONE (18:08)
[2023-12-20 20:12] VITALS: BP 98/60; PULSE 80; RESP 16; TEMP 98.4; O2SAT 95
[2023-12-20 20:30] LABS: GLUCOMETER DEV NAME(LOC) BV3S.; GLUCOSE,POINT OF CARE 130 MG/DL (70-110)
[2023-12-21 06:16] LABS: GLUCOMETER DEV NAME(LOC) BV3S.; GLUCOSE,POINT OF CARE 113 MG/DL (70-110)
[2023-12-21] MEDS: AZITHROMYCIN 250 MG TABLET PO SCH (08:08)
[2023-12-21 08:11] VITALS: BP 118/74; PULSE 79; RESP 16; TEMP 98; O2SAT 97
[2023-12-21 09:52] LABS: BASOPHILS % (AUTO) 0.3 % (0.0-2.0); EOSINOPHILS % (AUTO) 1.9 % (1.0-6.0); HEMATOCRIT 39.2 % (36-46); HEMOGLOBIN 13.3 g/dL (12.0-16.0); LYMPHOCYTES # (AUTO) 2.7 K/uL (1.0-4.8); MEAN CORPUSCULAR HEMOGLOBIN 30.3 pg (26.0-34.0); MEAN CORPUSCULAR HGB CONC 33.9 G/dL (31.0-37.0); MEAN CORPUSCULAR VOLUME 89 fL (80-100); MONOCYTES # (AUTO) 0.8 K/uL (0.1-1.0); MONOCYTES % (AUTO) 5.4 % (2.0-9.0); NEUTROPHILS # (AUTO) 10.5 K/uL (1.8-7.7); NEUTROPHILS % (AUTO) 73.4 % (40.0-70.0); PLATELET COUNT (AUTO) 218 K/uL (150-450); RED BLOOD CELL COUNT(AUTO) 4.38 MIL/uL (4.00-5.20); RED CELL DISTRIBUTION WIDTH 12.8 % (11.5-14.5); WHITE BLOOD COUNT (AUTO) 14.3 K/uL (4.5-11.0)
[2023-12-21 11:26] LABS: GLUCOMETER DEV NAME(LOC) BV3S.; GLUCOSE,POINT OF CARE 179 MG/DL (70-110)
[2023-12-21] MEDS ORDERED: OMEG10005 PO (15:40)
[2023-12-21] MEDS ORDERED: CLOZ100T61 PO (15:40)
[2023-12-21] MEDS ORDERED: NALT50TA33 PO (15:40)
[2023-12-21] MEDS ORDERED: MODA100T65 PO (15:40)
[2023-12-21] MEDS ORDERED: AZIT-103 PO (15:40)
[2023-12-24] MEDS ORDERED: LEVO750T68 PO (17:43)
[2023-12-24] MEDS ORDERED: PANT-31 PO (17:43)
[2023-12-24] MEDS ORDERED: TRIA15CR58 TP (17:46)
== END 2023-12-21 19:32 | disposition short-term general hospital (02) | DRG 750 ==
LOC: EMS 15:59 → B3A 11-13 00:35
PROVIDERS: ADMIT Psychiatry & Neurology Psychiatry; ATTEND Psychiatry & Neurology Psychiatry
PROC: GZHZZZZ Group Psychotherapy (ICD-10-PCS; principal; 2023-11-13)
PROC: GZ58ZZZ Individual Psychotherapy, Cognitive-Behavioral (ICD-10-PCS; 2023-11-13)
PROC: GZ56ZZZ Individual Psychotherapy, Supportive (ICD-10-PCS; 2023-11-13)
DX: F20.0 Paranoid schizophrenia (principal); G93.41 Metabolic encephalopathy; E11.9 Type 2 diabetes mellitus without complications; J44.9 Chronic obstructive pulmonary disease, unspecified; E78.5 Hyperlipidemia, unspecified; I10 Essential (primary) hypertension; Z20.822 Contact with and (suspected) exposure to COVID-19; E66.9 Obesity, unspecified; F17.200 Nicotine dependence, unspecified, uncomplicated; N39.0 Urinary tract infection, site not specified; L40.9 Psoriasis, unspecified; Z91.148 Patient's other noncompliance with medication regimen for other reason; Z88.0 Allergy status to penicillin; Z68.41 Body mass index [BMI] 40.0-44.9, adult; Z55.9 Problems related to education and literacy, unspecified; Z91.199 Patient's noncompliance with other medical treatment and regimen due to unspecified reason
CPT/HCPCS: 71045; 80053; 80061; 80159; 80307; 81001; 82962; 83036; 84443; 85025; 87086; 87186; 99285; G0480; J1200; J1630; J2060; J3230; J3490; Q9967; 36415-L1; 36415-TC

== ENCOUNTER 2023-12-24 19:06 | Inpatient (IN) | payer MEDICAID ==
[~2023-12-24] VITALS: Ht 157.5 cm; Wt 75.4 kg
[~2023-12-24 19:06] MED LIST changes: -ATOR40TA71 PO; -BENZ2TAB71 PO; -IVER3TAB PO; +LEVO750T68 PO; -LISI-893 PO; -OLAN10 PO; -OLAN10TA74 PO; +PANT-31 PO; -SERT-439 PO; -SERT20OR PO; +TRIA15CR58 TP
[2023-12-24] MEDS ORDERED: HydrOXYzine PAMOATE 50 MG CAPSULE PO PRN (21:15)
[2023-12-24] MEDS ORDERED: LOPERAMIDE HCL 2 MG CAPSULE PO PRN (21:15)
[2023-12-24] MEDS ORDERED: MAG HYDROX/ALUMINUM HYD/SIMETH ES 30 ML SUSPENSION UDCUP PO PRN (21:15)
[2023-12-24] MEDS ORDERED: GuaiFENesin/D-METHORPHAN [SUGAR-FREE] 200-20MG/10 ML SYRUP UDCUP PO PRN (21:15)
[2023-12-24] MEDS ORDERED: PROMETHAZINE HCL 25 MG TABLET PO PRN (21:15)
[2023-12-24] MEDS ORDERED: ACETAMINOPHEN 325 MG TABLET PO PRN (21:15)
[2023-12-25] MEDS: MULTIVITAMINS WITH MINERALS, THERAPEUTIC TABLET PO SCH (19:30)
[2023-12-25] MEDS: THIAMINE 100 MG TABLET PO SCH (19:30)
[2023-12-25] MEDS ORDERED: PNEUMOCOCCAL VACCINE POLYVALENT 0.5 ML SYRINGE [PPSV23] IM. ONE (19:30)
[2023-12-25] MEDS: OMEGA-3/DHA/EPA/FISH OIL 1,000 MG CAPSULE PO SCH (22:41)
[2023-12-25] MEDS: MELATONIN 5 MG TABLET PO SCH (22:41)
[2023-12-25] MEDS: ATORVASTATIN CALCIUM 40 MG TABLET PO SCH (22:41)
[2023-12-25] MEDS: FOLIC ACID 1 MG TABLET PO SCH (22:41)
[2023-12-25] MEDS: CloZAPine 100 MG TABLET PO SCH (22:42)
[2023-12-26] MEDS ORDERED: DEXTROSE 50%-WATER 25 GM/50 ML SYRINGE IVP PRN (05:45)
[2023-12-26] MEDS: MetFORMIN HCL 500 MG TABLET PO SCH (06:39)
[2023-12-26] MEDS: LEVOTHYROXINE SODIUM 50 MCG TABLET PO SCH (06:42)
[2023-12-26 07:10] LABS: GLUCOMETER DEV NAME(LOC) 3E.I 2; GLUCOSE,POINT OF CARE 130 MG/DL (70-110)
[2023-12-26] MEDS: PIOGLITAZONE HCL 15 MG TABLET PO SCH (08:37)
[2023-12-26] MEDS: LEVOFLOXACIN 750 MG TABLET PO SCH (08:37)
[2023-12-26] MEDS: PredniSONE 20 MG TABLET PO SCH (08:38)
[2023-12-26] MEDS: LISINOPRIL 10 MG TABLET PO SCH (08:38)
[2023-12-26] MEDS: PANTOPRAZOLE SODIUM 40 MG DR TABLET PO SCH (08:38)
[2023-12-26] MEDS ORDERED: TRIAMCINOLONE 0.5% 15 GM CREAM TP SCH (09:00)
[2023-12-26] MEDS: AmLODIPine BESYLATE 2.5 MG TABLET PO SCH (09:33)
[2023-12-26] MEDS: MODAFINIL 100 MG TABLET PO SCH (09:33)
[2023-12-26] MEDS: INSULIN LISPRO 100 UNITS/ML SQ PRN (11:37)
[2023-12-26 12:06] LABS: GLUCOMETER DEV NAME(LOC) 3EX.2; GLUCOSE,POINT OF CARE 208 MG/DL (70-110)
[2023-12-26] MEDS: FLUOCINONIDE 0.05% 15 GM CREAM TP SCH (16:13)
[2023-12-26 17:26] LABS: GLUCOMETER DEV NAME(LOC) 3EX.2; GLUCOSE,POINT OF CARE 278 MG/DL (70-110)
[2023-12-26 21:16] LABS: GLUCOMETER DEV NAME(LOC) 3E.I 2; GLUCOSE,POINT OF CARE 189 MG/DL (70-110)
[2023-12-27 06:30] LABS: GLUCOMETER DEV NAME(LOC) 3E.I 2; GLUCOSE,POINT OF CARE 135 MG/DL (70-110)
[2023-12-27 08:00] VITALS: BP 100/60; PULSE 71; RESP 18; TEMP 97.2; O2SAT 96
[2023-12-27 11:26] LABS: GLUCOMETER DEV NAME(LOC) 3EX.2; GLUCOSE,POINT OF CARE 146 MG/DL (70-110)
[2023-12-27 13:25] VITALS: BP 74/48; PULSE 95; RESP 18
[2023-12-27 13:27] VITALS: BP 87/51; RESP 18
[2023-12-27 16:41] LABS: GLUCOMETER DEV NAME(LOC) 3EX.2; GLUCOSE,POINT OF CARE 289 MG/DL (70-110)
[2023-12-27 20:01] LABS: GLUCOMETER DEV NAME(LOC) 3E.I 2; GLUCOSE,POINT OF CARE 215 MG/DL (70-110)
[2023-12-27] MEDS: CloZAPine 100 MG TABLET PO SCH (20:21)
[2023-12-27 20:42] VITALS: BP 85/51; PULSE 84; RESP 18; TEMP 97.5; O2SAT 98
[2023-12-28 05:07] LABS: CLOZAPINE & NORCLOZAPINE 157 ng/mL; NORCLOZAPINE 75 ng/mL (Not Estab.)
[2023-12-28 07:16] LABS: GLUCOMETER DEV NAME(LOC) 3E.I 2; GLUCOSE,POINT OF CARE 195 MG/DL (70-110)
[2023-12-28] MEDS: MODAFINIL 100 MG TABLET PO SCH (08:38)
[2023-12-28] MEDS: AmLODIPine BESYLATE 2.5 MG TABLET PO SCH (08:40)
[2023-12-28] MEDS: LISINOPRIL 5 MG TABLET PO SCH (08:40)
[2023-12-28 08:52] VITALS: BP 102/55; PULSE 74; RESP 18; TEMP 97.9; O2SAT 94
[2023-12-28 11:51] LABS: GLUCOMETER DEV NAME(LOC) 3EX.2; GLUCOSE,POINT OF CARE 199 MG/DL (70-110)
[2023-12-28 17:36] LABS: GLUCOMETER DEV NAME(LOC) 3EX.2; GLUCOSE,POINT OF CARE 314 MG/DL (70-110)
[2023-12-28 20:20] LABS: GLUCOMETER DEV NAME(LOC) 3E.I 2; GLUCOSE,POINT OF CARE 390 MG/DL (70-110)
[2023-12-28] MEDS: CloZAPine 100 MG TABLET PO SCH (20:49)
[2023-12-28 21:04] VITALS: BP 108/62; PULSE 98; RESP 18; TEMP 97.8; O2SAT 96
[2023-12-29 07:06] LABS: GLUCOMETER DEV NAME(LOC) 3E.I 2; GLUCOSE,POINT OF CARE 156 MG/DL (70-110)
[2023-12-29] MEDS: MODAFINIL 100 MG TABLET PO SCH (08:59)
[2023-12-29 09:25] VITALS: BP 113/66; PULSE 72; RESP 18; TEMP 96.8
[2023-12-29 11:45] LABS: GLUCOMETER DEV NAME(LOC) 3E.I 2; GLUCOSE,POINT OF CARE 242 MG/DL (70-110)
[2023-12-29] MEDS: MUPIROCIN CALCIUM 2% 22 GM OINTMENT NASAL SCH (16:30)
[2023-12-29 17:56] LABS: GLUCOMETER DEV NAME(LOC) 3E.I 2; GLUCOSE,POINT OF CARE 367 MG/DL (70-110)
[2023-12-29 20:26] LABS: GLUCOMETER DEV NAME(LOC) 3E.I 2; GLUCOSE,POINT OF CARE 274 MG/DL (70-110)
[2023-12-29 20:36] VITALS: BP 134/79; PULSE 85; RESP 19; TEMP 97.2; O2SAT 97
[2023-12-30 06:36] LABS: GLUCOMETER DEV NAME(LOC) 3E.I 2; GLUCOSE,POINT OF CARE 131 MG/DL (70-110)
[2023-12-30 09:09] VITALS: BP 112/65; PULSE 76; RESP 18; TEMP 98; O2SAT 96
[2023-12-30 12:05] LABS: GLUCOMETER DEV NAME(LOC) 3E.I 2; GLUCOSE,POINT OF CARE 177 MG/DL (70-110)
[2023-12-30 17:05] LABS: GLUCOMETER DEV NAME(LOC) 3E.I 2; GLUCOSE,POINT OF CARE 398 MG/DL (70-110)
[2023-12-30 20:06] VITALS: BP 124/81; PULSE 62; RESP 18; TEMP 97.1; O2SAT 97
[2023-12-30 20:25] LABS: GLUCOMETER DEV NAME(LOC) 3E.I 2; GLUCOSE,POINT OF CARE 300 MG/DL (70-110)
[2023-12-31 05:31] LABS: GLUCOMETER DEV NAME(LOC) 3E.I 2; GLUCOSE,POINT OF CARE 122 MG/DL (70-110)
[2023-12-31 10:15] VITALS: BP 158/83; PULSE 75; RESP 18; TEMP 97.9; O2SAT 98
[2023-12-31 12:01] LABS: GLUCOMETER DEV NAME(LOC) 3EX.2; GLUCOSE,POINT OF CARE 133 MG/DL (70-110)
[2023-12-31 16:35] LABS: GLUCOMETER DEV NAME(LOC) 3EX.2; GLUCOSE,POINT OF CARE 201 MG/DL (70-110)
[2023-12-31 20:20] LABS: GLUCOMETER DEV NAME(LOC) 3E.I 2; GLUCOSE,POINT OF CARE 350 MG/DL (70-110)
[2023-12-31 20:28] VITALS: RESP 17
[2024-01-01 05:35] LABS: GLUCOMETER DEV NAME(LOC) 3E.I 2; GLUCOSE,POINT OF CARE 113 MG/DL (70-110)
[2024-01-01] MEDS: MODAFINIL 100 MG TABLET PO SCH (08:47)
[2024-01-01 11:25] LABS: GLUCOMETER DEV NAME(LOC) 3E.I 2; GLUCOSE,POINT OF CARE 129 MG/DL (70-110)
[2024-01-01 11:46] LABS: BASOPHILS % (AUTO) 0.6 % (0.0-2.0); EOSINOPHILS % (AUTO) 1.1 % (1.0-6.0); HEMATOCRIT 41.4 % (36-46); HEMOGLOBIN 13.8 g/dL (12.0-16.0); LYMPHOCYTES % (AUTO) 20.6 % (22.0-44.0); MEAN CORPUSCULAR HEMOGLOBIN 29.7 pg (26.0-34.0); MEAN CORPUSCULAR HGB CONC 33.2 G/dL (31.0-37.0); MEAN CORPUSCULAR VOLUME 89 fL (80-100); MONOCYTES # (AUTO) 1.1 K/uL (0.1-1.0); MONOCYTES % (AUTO) 5.4 % (2.0-9.0); NEUTROPHILS # (AUTO) 14.1 K/uL (1.8-7.7); NEUTROPHILS % (AUTO) 72.3 % (40.0-70.0); PLATELET COUNT (AUTO) 229 K/uL (150-450); RED BLOOD CELL COUNT(AUTO) 4.63 MIL/uL (4.00-5.20); WHITE BLOOD COUNT (AUTO) 19.5 K/uL (4.5-11.0)
[2024-01-01 16:35] LABS: GLUCOMETER DEV NAME(LOC) 3E.I 2; GLUCOSE,POINT OF CARE 268 MG/DL (70-110)
[2024-01-01 20:25] LABS: GLUCOMETER DEV NAME(LOC) 3E.I 2; GLUCOSE,POINT OF CARE 394 MG/DL (70-110)
[2024-01-01 20:31] VITALS: BP 126/77; PULSE 85; RESP 18; TEMP 97.5; O2SAT 97
[2024-01-02 05:46] LABS: GLUCOMETER DEV NAME(LOC) 3E.I 2; GLUCOSE,POINT OF CARE 128 MG/DL (70-110)
[2024-01-02 11:21] LABS: GLUCOMETER DEV NAME(LOC) 3EX.2; GLUCOSE,POINT OF CARE 150 MG/DL (70-110)
[2024-01-02 12:50] VITALS: TEMP 98.1
[2024-01-02] MEDS: LORazepam 2 MG TABLET PO PRN (17:02)
[2024-01-02 17:10] LABS: GLUCOMETER DEV NAME(LOC) 3EX.2; GLUCOSE,POINT OF CARE 252 MG/DL (70-110)
[2024-01-02] MEDS: TUBERCULIN, PURIFIED PROTEIN DERIVATIVE 5 TU/0.1 ML SYRINGE ID ONE (18:42)
[2024-01-02 20:01] LABS: GLUCOMETER DEV NAME(LOC) 3E.I 2; GLUCOSE,POINT OF CARE 303 MG/DL (70-110)
[2024-01-02 20:39] VITALS: BP 111/78; PULSE 81; RESP 18; TEMP 97.9; O2SAT 98
[2024-01-02] MEDS: ZOLPIDEM TARTRATE 10 MG TABLET PO PRN (20:47)
[2024-01-02] MEDS: HALOPERIDOL 5 MG TABLET PO PRN (21:47)
[2024-01-03 05:56] LABS: GLUCOMETER DEV NAME(LOC) 3E.I 2; GLUCOSE,POINT OF CARE 178 MG/DL (70-110)
[2024-01-03 12:00] LABS: GLUCOMETER DEV NAME(LOC) 3E.I 2; GLUCOSE,POINT OF CARE 168 MG/DL (70-110)
[2024-01-03 16:45] VITALS: BP 131/70; PULSE 85; RESP 18; TEMP 97.6; O2SAT 96
[2024-01-03 16:46] LABS: GLUCOMETER DEV NAME(LOC) 3E.I 2; GLUCOSE,POINT OF CARE 388 MG/DL (70-110)
[2024-01-03] MEDS: MAGNESIUM HYDROXIDE SUSPENSION 30 ML UDCUP PO PRN (17:39)
[2024-01-03 21:16] LABS: GLUCOMETER DEV NAME(LOC) 3E.I 2; GLUCOSE,POINT OF CARE 259 MG/DL (70-110)
[2024-01-03 22:02] VITALS: BP 128/75; PULSE 98; RESP 18; TEMP 97.2; O2SAT 96
[2024-01-04 05:56] LABS: GLUCOMETER DEV NAME(LOC) 3E.I 2; GLUCOSE,POINT OF CARE 162 MG/DL (70-110)
[2024-01-04 09:30] VITALS: BP 131/71; PULSE 81; RESP 18; TEMP 98.2; O2SAT 95
[2024-01-04 10:06] LABS: CLOZAPINE & NORCLOZAPINE 531 ng/mL; NORCLOZAPINE 174 ng/mL (Not Estab.)
[2024-01-04 11:30] LABS: GLUCOMETER DEV NAME(LOC) 3E.I 2; GLUCOSE,POINT OF CARE 112 MG/DL (70-110)
[2024-01-04 17:11] LABS: GLUCOMETER DEV NAME(LOC) 3E.I 2; GLUCOSE,POINT OF CARE 335 MG/DL (70-110)
[2024-01-04 20:15] LABS: GLUCOMETER DEV NAME(LOC) 3E.I 2; GLUCOSE,POINT OF CARE 408 MG/DL (70-110)
[2024-01-05 05:31] LABS: GLUCOMETER DEV NAME(LOC) 3E.I 2; GLUCOSE,POINT OF CARE 122 MG/DL (70-110)
[2024-01-05] MEDS: MODAFINIL 100 MG TABLET PO SCH (08:21)
[2024-01-05 09:57] VITALS: RESP 18; TEMP 97.9
[2024-01-05 11:36] LABS: GLUCOMETER DEV NAME(LOC) 3EX.2; GLUCOSE,POINT OF CARE 103 MG/DL (70-110)
[2024-01-05 17:10] LABS: GLUCOMETER DEV NAME(LOC) 3EX.2; GLUCOSE,POINT OF CARE 332 MG/DL (70-110)
[2024-01-05 21:31] LABS: GLUCOMETER DEV NAME(LOC) 3EX.2; GLUCOSE,POINT OF CARE 264 MG/DL (70-110)
[2024-01-05 21:33] VITALS: BP 120/65; PULSE 77; RESP 18; TEMP 97.8; O2SAT 97
[2024-01-06 05:50] LABS: GLUCOMETER DEV NAME(LOC) 3EX.2; GLUCOSE,POINT OF CARE 213 MG/DL (70-110)
[2024-01-06 08:44] VITALS: RESP 18
[2024-01-06 10:41] LABS: GLUCOMETER DEV NAME(LOC) 3E.I 2; GLUCOSE,POINT OF CARE 128 MG/DL (70-110)
[2024-01-06 17:01] LABS: GLUCOMETER DEV NAME(LOC) 3EX.2; GLUCOSE,POINT OF CARE 451 MG/DL (70-110)
[2024-01-06] MEDS: FLUOCINONIDE 0.05% TP SCH (17:16)
[2024-01-06] MEDS: INSULIN LISPRO 100 UNITS/ML SQ PRN (17:56)
[2024-01-06 19:20] LABS: GLUCOMETER DEV NAME(LOC) 3EX.2; GLUCOSE,POINT OF CARE 359 MG/DL (70-110)
[2024-01-06 20:01] VITALS: BP 126/74; PULSE 90; RESP 18; TEMP 97.9; O2SAT 98
[2024-01-06 20:16] LABS: GLUCOMETER DEV NAME(LOC) 3EX.2; GLUCOSE,POINT OF CARE 319 MG/DL (70-110)
[2024-01-07 07:21] LABS: GLUCOMETER DEV NAME(LOC) 3EX.2; GLUCOSE,POINT OF CARE 133 MG/DL (70-110)
[2024-01-07 09:52] VITALS: RESP 18; TEMP 97.9
[2024-01-07 11:26] LABS: GLUCOMETER DEV NAME(LOC) 3EX.2; GLUCOSE,POINT OF CARE 123 MG/DL (70-110)
[2024-01-07 17:25] LABS: GLUCOMETER DEV NAME(LOC) 3EX.2; GLUCOSE,POINT OF CARE 297 MG/DL (70-110)
[2024-01-07 20:21] LABS: GLUCOMETER DEV NAME(LOC) 3EX.2; GLUCOSE,POINT OF CARE 277 MG/DL (70-110)
[2024-01-07 20:50] VITALS: BP 118/76; PULSE 93; RESP 19; TEMP 97.7; O2SAT 98
[2024-01-08 05:31] LABS: GLUCOMETER DEV NAME(LOC) 3EX.2; GLUCOSE,POINT OF CARE 129 MG/DL (70-110)
[2024-01-08 11:04] LABS: BASOPHILS % (AUTO) 0.4 % (0.0-2.0); EOSINOPHILS % (AUTO) 1.3 % (1.0-6.0); HEMATOCRIT 40.6 % (36-46); HEMOGLOBIN 13.4 g/dL (12.0-16.0); LYMPHOCYTES # (AUTO) 4.7 K/uL (1.0-4.8); LYMPHOCYTES % (AUTO) 22.4 % (22.0-44.0); MEAN CORPUSCULAR HEMOGLOBIN 29.8 pg (26.0-34.0); MEAN CORPUSCULAR HGB CONC 32.9 G/dL (31.0-37.0); MEAN CORPUSCULAR VOLUME 91 fL (80-100); MONOCYTES # (AUTO) 1.3 K/uL (0.1-1.0); NEUTROPHILS # (AUTO) 14.7 K/uL (1.8-7.7); NEUTROPHILS % (AUTO) 69.9 % (40.0-70.0); PLATELET COUNT (AUTO) 234 K/uL (150-450); RED BLOOD CELL COUNT(AUTO) 4.49 MIL/uL (4.00-5.20)
[2024-01-08] MEDS ORDERED: OMEG-135 PO (11:36)
[2024-01-08] MEDS ORDERED: MELA5TAB40 PO (11:36)
[2024-01-08] MEDS ORDERED: MODA100T65 PO (11:36)
[2024-01-08] MEDS ORDERED: CLOZ100T61 PO (11:36)
[2024-01-08 11:51] LABS: GLUCOMETER DEV NAME(LOC) 3E.I 2; GLUCOSE,POINT OF CARE 180 MG/DL (70-110)
[2024-01-08 20:50] LABS: GLUCOMETER DEV NAME(LOC) 3EX.2; GLUCOSE,POINT OF CARE 340 MG/DL (70-110)
[2024-01-08 22:40] VITALS: BP 114/73; PULSE 97; RESP 18; TEMP 98.7; O2SAT 98
[2024-01-09 04:56] LABS: GLUCOMETER DEV NAME(LOC) 3E.I 2; GLUCOSE,POINT OF CARE 330 MG/DL (70-110)
[2024-01-09 06:01] LABS: GLUCOMETER DEV NAME(LOC) 3EX.2; GLUCOSE,POINT OF CARE 122 MG/DL (70-110)
[2024-01-09] MEDS ORDERED: LEVO25CA4 PO (08:18)
== END 2024-01-09 09:20 | disposition home or self-care (01) | DRG 750 ==
LOC: 3EI 12-25 18:00
PROVIDERS: ADMIT Psychiatry & Neurology Psychiatry; ATTEND Psychiatry & Neurology Psychiatry
PROC: GZ58ZZZ Individual Psychotherapy, Cognitive-Behavioral (ICD-10-PCS; principal; 2023-12-26)
DX: F25.0 Schizoaffective disorder, bipolar type (principal); E11.9 Type 2 diabetes mellitus without complications; E03.9 Hypothyroidism, unspecified; E66.9 Obesity, unspecified; E78.5 Hyperlipidemia, unspecified; F30.9 Manic episode, unspecified; F41.9 Anxiety disorder, unspecified; G47.00 Insomnia, unspecified; I10 Essential (primary) hypertension; K21.9 Gastro-esophageal reflux disease without esophagitis; K59.00 Constipation, unspecified; Z88.0 Allergy status to penicillin; Z91.199 Patient's noncompliance with other medical treatment and regimen due to unspecified reason; Z88.5 Allergy status to narcotic agent; Z88.8 Allergy status to other drugs, medicaments and biological substances; Z68.30 Body mass index [BMI] 30.0-30.9, adult; Z72.0 Tobacco use
CPT/HCPCS: 80159; 82962; 85025; 87081; Q9967

== ENCOUNTER 2024-02-26 09:25 | Inpatient (IN) | payer MEDICAID ==
[~2024-02-26] VITALS: Ht 157.5 cm; Wt 103.6 kg
[~2024-02-26 09:25] MED LIST changes: +CLOZ100T61 PO; +LEVO25CA4 PO; -LEVO750T68 PO; -LISI-661 PO; +MELA5TAB40 PO; +MODA100T65 PO; +OMEG-135 PO; -TRIA15CR58 TP
[2024-02-26 11:06] LABS: GLUCOMETER DEV NAME(LOC) POC.BV; POC SARS-COV2 AG, FIA NEGATIVE (NEGATIVE)
[2024-02-26] MEDS ORDERED: HALOPERIDOL 5 MG TABLET PO PRN (11:30)
[2024-02-26] MEDS ORDERED: ZOLPIDEM TARTRATE 10 MG TABLET PO PRN (11:30)
[2024-02-26] MEDS ORDERED: LORazepam 2 MG TABLET PO PRN (11:30)
[2024-02-26 12:00] VITALS: BP 116/79; PULSE 87; RESP 18; TEMP 98.8; O2SAT 97
[2024-02-26] MEDS ORDERED: PNEUMOCOCCAL VACCINE POLYVALENT 0.5 ML SYRINGE [PPSV23] IM. ONE (14:15)
[2024-02-26] MEDS: NICOTINE 14 MG/24 HOUR PATCH TD SCH (16:00)
[2024-02-26] MEDS ORDERED: GLUCAGON,HUMAN RECOMBINANT 1 MG VIAL IM PRN (16:00)
[2024-02-26] MEDS: MetFORMIN HCL 500 MG TABLET PO SCH (16:54)
[2024-02-26] MEDS: ATORVASTATIN CALCIUM 40 MG TABLET PO SCH (20:25)
[2024-02-26 21:39] VITALS: RESP 16
[2024-02-27] MEDS: LEVOTHYROXINE SODIUM 25 MCG TABLET PO SCH (06:08)
[2024-02-27] MEDS: AmLODIPine BESYLATE 2.5 MG TABLET PO SCH (08:12)
[2024-02-27] MEDS: PANTOPRAZOLE SODIUM 40 MG DR TABLET PO SCH (08:12)
[2024-02-27] MEDS: PIOGLITAZONE HCL 15 MG TABLET PO SCH (08:34)
[2024-02-27 08:49] VITALS: RESP 18
[2024-02-27 20:19] VITALS: RESP 16
[2024-02-28 09:25] VITALS: RESP 18
[2024-02-28 12:05] LABS: GLUCOMETER DEV NAME(LOC) BV3S.; GLUCOSE,POINT OF CARE 245 MG/DL (70-110)
[2024-02-28] MEDS ORDERED: CloZAPine 100 MG TABLET PO SCH (21:00)
[2024-02-28 21:23] VITALS: RESP 18
[2024-02-29 08:14] LABS: BASOPHILS % (AUTO) 0.4 % (0.0-2.0); EOSINOPHILS % (AUTO) 1.5 % (1.0-6.0); HEMATOCRIT 43.1 % (36-46); HEMOGLOBIN 14.4 g/dL (12.0-16.0); LYMPHOCYTES # (AUTO) 3.3 K/uL (1.0-4.8); LYMPHOCYTES % (AUTO) 25.1 % (22.0-44.0); MEAN CORPUSCULAR HEMOGLOBIN 30.2 pg (26.0-34.0); MEAN CORPUSCULAR HGB CONC 33.4 G/dL (31.0-37.0); MEAN CORPUSCULAR VOLUME 90 fL (80-100); MONOCYTES # (AUTO) 0.6 K/uL (0.1-1.0); MONOCYTES % (AUTO) 4.5 % (2.0-9.0); NEUTROPHILS % (AUTO) 68.5 % (40.0-70.0); PLATELET COUNT (AUTO) 243 K/uL (150-450); RED BLOOD CELL COUNT(AUTO) 4.77 MIL/uL (4.00-5.20); RED CELL DISTRIBUTION WIDTH 12.6 % (11.5-14.5); WHITE BLOOD COUNT (AUTO) 13.1 K/uL (4.5-11.0)
[2024-02-29 08:28] VITALS: RESP 18
[2024-02-29 08:32] LABS: HEMOGLOBIN A1C 8.4 % (3.8-5.6)
[2024-02-29 08:37] LABS: ALANINE AMINOTRANSFERASE 20 U/L (12-78); ALBUMIN 3.3 g/dL (3.4-5.0); ALKALINE PHOSPHATASE 119 U/L (46-116); ASPARTATE AMINOTRANSFERASE 10 U/L (15-37); BILIRUBIN,TOTAL 0.6 mg/dL (0.1-1.0); CALCIUM, TOTAL 9.5 mg/dL (8.8-10.5); CHOL/HDL RATIO 5.1 (3.9-5.7); CHOLESTEROL 254 mg/dL (131-200); CREATININE 0.51 mg/dL (0.60-1.30); GLOMERULAR FILTR. RATE CALC > 60 mL/min (>60); GLUCOSE,RANDOM 191 mg/dL (70-110); HDL CHOLESTEROL 50 mg/dL (40-60); LDL CHOL (CALC.) 144 mg/dL (0-130); THYROID STIMULATING HORMONE 4.44 uIU/mL (0.36-3.74); TOTAL PROTEIN, SERUM 7.5 g/dL (6.4-8.2); TRIGLYCERIDES 300 mg/dL (15-150); UREA NITROGEN, BLOOD 9 mg/dL (7-18)
[2024-02-29 08:51] LABS: ANION GAP 1 mmol/L (8-16); CARBON DIOXIDE 37 mmol/L (22-29); CHLORIDE 98 mmol/L (98-107); POTASSIUM 4.2 mmol/L (3.5-5.1); SODIUM SERUM 136 mmol/L (136-145)
[2024-02-29] MEDS: CloZAPine 100 MG TABLET PO SCH (20:07)
[2024-02-29 21:14] VITALS: RESP 18
[2024-03-01 08:04] VITALS: BP 132/71; PULSE 84; RESP 18; TEMP 97.5
[2024-03-01 09:25] LABS: BASOPHILS % (AUTO) 0.9 % (0.0-2.0); HEMATOCRIT 42.7 % (36-46); HEMOGLOBIN 14.5 g/dL (12.0-16.0); LYMPHOCYTES # (AUTO) 3.2 K/uL (1.0-4.8); MEAN CORPUSCULAR HEMOGLOBIN 30.4 pg (26.0-34.0); MEAN CORPUSCULAR HGB CONC 33.9 G/dL (31.0-37.0); MEAN CORPUSCULAR VOLUME 90 fL (80-100); MONOCYTES # (AUTO) 0.7 K/uL (0.1-1.0); MONOCYTES % (AUTO) 4.7 % (2.0-9.0); NEUTROPHILS # (AUTO) 9.8 K/uL (1.8-7.7); NEUTROPHILS % (AUTO) 70.4 % (40.0-70.0); PLATELET COUNT (AUTO) 252 K/uL (150-450); RED BLOOD CELL COUNT(AUTO) 4.76 MIL/uL (4.00-5.20); RED CELL DISTRIBUTION WIDTH 12.4 % (11.5-14.5); WHITE BLOOD COUNT (AUTO) 13.9 K/uL (4.5-11.0)
[2024-03-01 09:57] LABS: APPEARANCE,URINE CLEAR (CLEAR); BILIRUBIN,URINE NEGATIVE (NEGATIVE); COLOR,URINE COLORLESS (YELLOW); GLUCOSE, URINE (UA) NEGATIVE (NEGATIVE); KETONES,URINE NEGATIVE (NEGATIVE); LEUKOCYTE ESTERASE ,URINE TRACE (NEGATIVE); NITRATE,URINE NEGATIVE (NEGATIVE); OCCULT BLOOD,URINE NEGATIVE (NEGATIVE); PH,URINE 7.5 (5.0-8.0); PH,URINE DRUG SCREEN 7.5 (5.0-8.0); PROTEIN,URINE NEGATIVE (NEGATIVE); SPECIFIC GRAVITIY, URINE 1.011 (1.003-1.030); UROBILINOGEN,URINE <=1.0 mg/dL (<=1.0)
[2024-03-01 10:02] LABS: ALCOHOL, URINE DRUG SCREEN NEGATIVE (NEGATIVE); AMPHET/METH SCREEN,URINE NEGATIVE (NEGATIVE); BARBITURATE SCREEN, URINE NEGATIVE (NEGATIVE); BENZODIAZEPINES SCREEN,URINE NEGATIVE (NEGATIVE); CANNABINOID SCREEN,URINE NEGATIVE (NEGATIVE); COCAINE SCREEN,URINE NEGATIVE (NEGATIVE); METHADONE SCREEN, URINE NEGATIVE (NEGATIVE); OPIATE SCREEN,URINE NEGATIVE (NEGATIVE); PHENCYCLIDINE SCREEN,URINE NEGATIVE (NEGATIVE)
[2024-03-01 10:07] LABS: HEPATITIS A ANTIBODY IGM Negative (Negative); HEPATITIS B CORE IGM Negative (Negative); HEPATITIS C AB (EIA) Non Reactive (Non Reactive)
[2024-03-01 10:30] LABS: BACTERIA,URINE Rare /HPF (None Seen); RBC,URINE 0-2 /HPF (0-2); WBC,URINE 0-2 /HPF (0-5)
[2024-03-01 10:31] LABS: SQUAMOUS EPITHELIAL CELL,UR Few /LPF (None Seen)
[2024-03-01 11:41] LABS: GLUCOMETER DEV NAME(LOC) BV3S.; GLUCOSE,POINT OF CARE 178 MG/DL (70-110)
[2024-03-01] MEDS: INSULIN LISPRO 100 UNITS/ML SQ PRN (12:02)
[2024-03-01 16:50] LABS: GLUCOMETER DEV NAME(LOC) BV3S.; GLUCOSE,POINT OF CARE 230 MG/DL (70-110)
[2024-03-01] MEDS ORDERED: ATORVASTATIN CALCIUM 10 MG TABLET PO SCH (21:00)
[2024-03-01 21:06] VITALS: BP 119/68; PULSE 71; RESP 18; TEMP 97.6; O2SAT 99
[2024-03-02 08:30] VITALS: RESP 18
[2024-03-02 22:09] VITALS: BP 142/72; PULSE 71; RESP 18; TEMP 97.5; O2SAT 95
[2024-03-03 08:26] VITALS: RESP 16
[2024-03-04 06:21] LABS: GLUCOMETER DEV NAME(LOC) BV3S.; GLUCOSE,POINT OF CARE 93 MG/DL (70-110)
[2024-03-04 08:10] VITALS: RESP 18
[2024-03-04 20:52] VITALS: RESP 16
[2024-03-04] MEDS: ChlorproMAZINE HCL 50 MG/2 ML AMP IM PRN (22:08)
[2024-03-05 06:55] LABS: GLUCOMETER DEV NAME(LOC) BV3S.; GLUCOSE,POINT OF CARE 184 MG/DL (70-110)
[2024-03-05 08:12] LABS: BASOPHILS % (AUTO) 0.5 % (0.0-2.0); EOSINOPHILS % (AUTO) 1.9 % (1.0-6.0); HEMATOCRIT 41.1 % (36-46); HEMOGLOBIN 13.9 g/dL (12.0-16.0); LYMPHOCYTES # (AUTO) 3.1 K/uL (1.0-4.8); LYMPHOCYTES % (AUTO) 22.6 % (22.0-44.0); MEAN CORPUSCULAR HEMOGLOBIN 30.3 pg (26.0-34.0); MEAN CORPUSCULAR HGB CONC 33.8 G/dL (31.0-37.0); MEAN CORPUSCULAR VOLUME 90 fL (80-100); MONOCYTES # (AUTO) 0.7 K/uL (0.1-1.0); MONOCYTES % (AUTO) 5.4 % (2.0-9.0); NEUTROPHILS # (AUTO) 9.7 K/uL (1.8-7.7); NEUTROPHILS % (AUTO) 69.6 % (40.0-70.0); RED BLOOD CELL COUNT(AUTO) 4.58 MIL/uL (4.00-5.20); RED CELL DISTRIBUTION WIDTH 12.2 % (11.5-14.5); WHITE BLOOD COUNT (AUTO) 13.9 K/uL (4.5-11.0)
[2024-03-05 08:28] VITALS: RESP 16
[2024-03-05 09:25] LABS: PLATELET COUNT (AUTO) 211 K/uL (150-450)
[2024-03-05 20:52] VITALS: RESP 16
[2024-03-06 08:27] VITALS: RESP 16
[2024-03-06] MEDS: TUBERCULIN, PURIFIED PROTEIN DERIVATIVE 5 TU/0.1 ML SYRINGE ID ONE (09:07)
[2024-03-06] MEDS: SIMVASTATIN 10 MG TABLET PO SCH (20:56)
[2024-03-06 23:38] VITALS: RESP 18
[2024-03-07 09:18] VITALS: RESP 17
[2024-03-08 08:23] VITALS: RESP 16
[2024-03-08 20:26] VITALS: RESP 16
[2024-03-09 08:16] VITALS: RESP 16
[2024-03-09 20:21] VITALS: RESP 17
[2024-03-10 08:21] VITALS: RESP 18
[2024-03-11 06:51] LABS: GLUCOMETER DEV NAME(LOC) BV3S.; GLUCOSE,POINT OF CARE 243 MG/DL (70-110)
[2024-03-12 08:21] VITALS: RESP 16
[2024-03-12 09:44] LABS: BASOPHILS % (AUTO) 2.2 % (0.0-2.0); EOSINOPHILS % (AUTO) 1.6 % (1.0-6.0); HEMOGLOBIN 13.2 g/dL (12.0-16.0); LYMPHOCYTES # (AUTO) 2.7 K/uL (1.0-4.8); LYMPHOCYTES % (AUTO) 19.7 % (22.0-44.0); MEAN CORPUSCULAR HGB CONC 33.8 G/dL (31.0-37.0); MEAN CORPUSCULAR VOLUME 89 fL (80-100); MONOCYTES # (AUTO) 0.5 K/uL (0.1-1.0); MONOCYTES % (AUTO) 3.6 % (2.0-9.0); NEUTROPHILS # (AUTO) 10.1 K/uL (1.8-7.7); NEUTROPHILS % (AUTO) 72.9 % (40.0-70.0); PLATELET COUNT (AUTO) 224 K/uL (150-450); RED CELL DISTRIBUTION WIDTH 12.1 % (11.5-14.5); WHITE BLOOD COUNT (AUTO) 13.9 K/uL (4.5-11.0)
[2024-03-12 20:00] VITALS: RESP 18
[2024-03-13 08:44] VITALS: RESP 17
[2024-03-13 22:28] VITALS: RESP 17
[2024-03-14 08:18] VITALS: RESP 16
[2024-03-14 10:23] VITALS: BP 120/78; PULSE 94; RESP 15; TEMP 98.8; O2SAT 95
[2024-03-15 15:00] VITALS: RESP 16
[2024-03-16 03:26] VITALS: RESP 16
[2024-03-16 08:20] VITALS: RESP 17
[2024-03-16 21:38] VITALS: RESP 18
[2024-03-18 08:22] VITALS: RESP 16
[2024-03-18 23:12] VITALS: RESP 18
[2024-03-19 06:36] LABS: GLUCOMETER DEV NAME(LOC) BV3S.; GLUCOSE,POINT OF CARE 232 MG/DL (70-110)
[2024-03-19 09:01] VITALS: RESP 18
[2024-03-19 20:11] VITALS: BP 109/93; PULSE 90; RESP 15; TEMP 97
[2024-03-20 09:14] LABS: BASOPHILS % (AUTO) 0.3 % (0.0-2.0); EOSINOPHILS % (AUTO) 1.9 % (1.0-6.0); HEMOGLOBIN 13.4 g/dL (12.0-16.0); LYMPHOCYTES # (AUTO) 3.4 K/uL (1.0-4.8); LYMPHOCYTES % (AUTO) 24.1 % (22.0-44.0); MEAN CORPUSCULAR HEMOGLOBIN 29.6 pg (26.0-34.0); MEAN CORPUSCULAR HGB CONC 33.5 G/dL (31.0-37.0); MEAN CORPUSCULAR VOLUME 88 fL (80-100); MONOCYTES # (AUTO) 0.6 K/uL (0.1-1.0); MONOCYTES % (AUTO) 4.3 % (2.0-9.0); NEUTROPHILS # (AUTO) 9.8 K/uL (1.8-7.7); NEUTROPHILS % (AUTO) 69.4 % (40.0-70.0); PLATELET COUNT (AUTO) 220 K/uL (150-450); RED BLOOD CELL COUNT(AUTO) 4.53 MIL/uL (4.00-5.20); RED CELL DISTRIBUTION WIDTH 12.3 % (11.5-14.5); WHITE BLOOD COUNT (AUTO) 14.1 K/uL (4.5-11.0)
[2024-03-20 09:18] VITALS: RESP 18
[2024-03-21 00:42] VITALS: BP 134/81; PULSE 100; RESP 18; TEMP 97.8; O2SAT 95
[2024-03-21 10:11] VITALS: BP 137/76; PULSE 82; RESP 18; TEMP 98.1; O2SAT 99
[2024-03-21 20:37] VITALS: RESP 18
[2024-03-22] MEDS: ETHYL ALCOHOL 62% ANTISEPTIC NASAL SANITIZER 0.6 ML AMPUL NASAL SCH (09:00)
[2024-03-22 12:05] LABS: GLUCOMETER DEV NAME(LOC) 3E.C; GLUCOSE,POINT OF CARE 235 MG/DL (70-110)
[2024-03-22 17:31] LABS: GLUCOMETER DEV NAME(LOC) 3E.C; GLUCOSE,POINT OF CARE 238 MG/DL (70-110)
[2024-03-22 20:45] LABS: GLUCOMETER DEV NAME(LOC) 3E.C; GLUCOSE,POINT OF CARE 228 MG/DL (70-110)
[2024-03-22 21:46] VITALS: BP 115/70; PULSE 102; PULSE 77; RESP 18; TEMP 98; O2SAT 93; O2SAT 95
[2024-03-23 08:05] VITALS: RESP 18
[2024-03-23 16:56] LABS: GLUCOMETER DEV NAME(LOC) 3E.C; GLUCOSE,POINT OF CARE 200 MG/DL (70-110)
[2024-03-23] MEDS ORDERED: NICOTINE 14 MG/24 HOUR PATCH TD PRN (18:15)
[2024-03-23 21:35] LABS: GLUCOMETER DEV NAME(LOC) 3E.C; GLUCOSE,POINT OF CARE 228 MG/DL (70-110)
[2024-03-23 22:52] VITALS: BP 117/73; PULSE 77; RESP 18; TEMP 98.1; O2SAT 95
[2024-03-24 09:00] VITALS: BP 121/76; PULSE 84; RESP 18; TEMP 98
[2024-03-24 12:06] LABS: GLUCOMETER DEV NAME(LOC) 3E.C; GLUCOSE,POINT OF CARE 252 MG/DL (70-110)
[2024-03-24 16:30] LABS: GLUCOMETER DEV NAME(LOC) 3E.C; GLUCOSE,POINT OF CARE 256 MG/DL (70-110)
[2024-03-24 21:45] VITALS: RESP 18
[2024-03-24 21:45] LABS: GLUCOMETER DEV NAME(LOC) 3E.C; GLUCOSE,POINT OF CARE 170 MG/DL (70-110)
[2024-03-25 08:35] VITALS: BP 110/68; PULSE 89; RESP 18; TEMP 97.6; O2SAT 97
[2024-03-25 11:06] LABS: GLUCOMETER DEV NAME(LOC) 3E.C; GLUCOSE,POINT OF CARE 162 MG/DL (70-110)
[2024-03-25 16:01] LABS: GLUCOMETER DEV NAME(LOC) 3E.C; GLUCOSE,POINT OF CARE 290 MG/DL (70-110)
[2024-03-25 21:15] VITALS: BP 120/67; PULSE 88; RESP 18; TEMP 98; O2SAT 99
[2024-03-25 21:26] LABS: GLUCOMETER DEV NAME(LOC) 3E.C; GLUCOSE,POINT OF CARE 200 MG/DL (70-110)
[2024-03-26 06:50] LABS: GLUCOMETER DEV NAME(LOC) 3E.C; GLUCOSE,POINT OF CARE 150 MG/DL (70-110)
[2024-03-26 08:15] VITALS: BP 125/68; PULSE 83; RESP 18; TEMP 97.6; O2SAT 96
[2024-03-26 11:55] LABS: GLUCOMETER DEV NAME(LOC) 3E.C; GLUCOSE,POINT OF CARE 202 MG/DL (70-110)
[2024-03-26 17:51] LABS: GLUCOMETER DEV NAME(LOC) 3E.C; GLUCOSE,POINT OF CARE 153 MG/DL (70-110)
[2024-03-26 20:51] VITALS: BP 115/63; PULSE 86; RESP 18; TEMP 98.7; O2SAT 95
[2024-03-26 21:25] LABS: GLUCOMETER DEV NAME(LOC) 3E.C; GLUCOSE,POINT OF CARE 188 MG/DL (70-110)
[2024-03-27 06:56] LABS: GLUCOMETER DEV NAME(LOC) 3E.C; GLUCOSE,POINT OF CARE 152 MG/DL (70-110)
[2024-03-27 08:00] VITALS: TEMP 98
[2024-03-27 12:21] LABS: GLUCOMETER DEV NAME(LOC) 3E.C; GLUCOSE,POINT OF CARE 224 MG/DL (70-110)
[2024-03-27 17:55] LABS: GLUCOMETER DEV NAME(LOC) 3E.C; GLUCOSE,POINT OF CARE 214 MG/DL (70-110)
[2024-03-27 20:55] VITALS: RESP 18
[2024-03-28 06:50] LABS: GLUCOMETER DEV NAME(LOC) 3E.C; GLUCOSE,POINT OF CARE 168 MG/DL (70-110)
[2024-03-28 07:15] LABS: EOSINOPHILS % (AUTO) 1.4 % (1.0-6.0); HEMATOCRIT 39.4 % (36-46); HEMOGLOBIN 13.2 g/dL (12.0-16.0); LYMPHOCYTES % (AUTO) 21.2 % (22.0-44.0); MEAN CORPUSCULAR HEMOGLOBIN 29.7 pg (26.0-34.0); MEAN CORPUSCULAR HGB CONC 33.5 G/dL (31.0-37.0); MEAN CORPUSCULAR VOLUME 89 fL (80-100); MONOCYTES # (AUTO) 0.7 K/uL (0.1-1.0); MONOCYTES % (AUTO) 5.1 % (2.0-9.0); NEUTROPHILS % (AUTO) 71.3 % (40.0-70.0); PLATELET COUNT (AUTO) 233 K/uL (150-450); RED BLOOD CELL COUNT(AUTO) 4.44 MIL/uL (4.00-5.20); RED CELL DISTRIBUTION WIDTH 12.6 % (11.5-14.5); WHITE BLOOD COUNT (AUTO) 14.1 K/uL (4.5-11.0)
[2024-03-28 10:55] LABS: GLUCOMETER DEV NAME(LOC) 3E.C; GLUCOSE,POINT OF CARE 123 MG/DL (70-110)
[2024-03-28 17:55] LABS: GLUCOMETER DEV NAME(LOC) 3E.C; GLUCOSE,POINT OF CARE 181 MG/DL (70-110)
[2024-03-28 21:00] VITALS: RESP 18
[2024-03-28 21:35] LABS: GLUCOMETER DEV NAME(LOC) 3E.C; GLUCOSE,POINT OF CARE 176 MG/DL (70-110)
[2024-03-29 06:55] LABS: GLUCOMETER DEV NAME(LOC) 3E.C; GLUCOSE,POINT OF CARE 159 MG/DL (70-110)
[2024-03-29 10:41] VITALS: RESP 20
[2024-03-29 11:35] LABS: GLUCOMETER DEV NAME(LOC) 3E.C; GLUCOSE,POINT OF CARE 169 MG/DL (70-110)
[2024-03-29 16:11] LABS: GLUCOMETER DEV NAME(LOC) 3E.C; GLUCOSE,POINT OF CARE 147 MG/DL (70-110)
[2024-03-29 21:48] VITALS: RESP 18
[2024-03-30 06:55] LABS: GLUCOMETER DEV NAME(LOC) 3E.C; GLUCOSE,POINT OF CARE 137 MG/DL (70-110)
[2024-03-30 09:18] VITALS: BP 128/80; PULSE 78; RESP 17; TEMP 97.8; O2SAT 95
[2024-03-30 12:00] LABS: GLUCOMETER DEV NAME(LOC) 3E.C; GLUCOSE,POINT OF CARE 152 MG/DL (70-110)
[2024-03-30 16:56] LABS: GLUCOMETER DEV NAME(LOC) 3E.C; GLUCOSE,POINT OF CARE 159 MG/DL (70-110)
[2024-03-30 21:53] VITALS: BP 114/74; PULSE 81; RESP 18; TEMP 97.5; O2SAT 99
[2024-03-31 07:11] LABS: GLUCOMETER DEV NAME(LOC) 3E.I 2; GLUCOSE,POINT OF CARE 148 MG/DL (70-110)
[2024-03-31 12:30] LABS: GLUCOMETER DEV NAME(LOC) 3E.I 2; GLUCOSE,POINT OF CARE 152 MG/DL (70-110)
[2024-03-31 16:18] VITALS: BP 125/68; PULSE 84; RESP 18; TEMP 98.4; O2SAT 96
[2024-03-31 17:46] LABS: GLUCOMETER DEV NAME(LOC) 3E.I 2; GLUCOSE,POINT OF CARE 152 MG/DL (70-110)
[2024-03-31 20:15] LABS: GLUCOMETER DEV NAME(LOC) 3E.I 2; GLUCOSE,POINT OF CARE 105 MG/DL (70-110)
[2024-03-31 22:38] VITALS: BP 132/84; PULSE 86; RESP 18; TEMP 98.1; O2SAT 97
[2024-04-01 06:51] LABS: GLUCOMETER DEV NAME(LOC) 3EX.2; GLUCOSE,POINT OF CARE 146 MG/DL (70-110)
[2024-04-01 10:06] VITALS: BP 124/70; PULSE 78; RESP 18; TEMP 97.8; O2SAT 98
[2024-04-01 12:00] LABS: GLUCOMETER DEV NAME(LOC) 3E.I 2; GLUCOSE,POINT OF CARE 121 MG/DL (70-110)
[2024-04-01 17:21] LABS: GLUCOMETER DEV NAME(LOC) 3E.I 2; GLUCOSE,POINT OF CARE 173 MG/DL (70-110)
[2024-04-01 21:36] LABS: GLUCOMETER DEV NAME(LOC) 3E.I 2; GLUCOSE,POINT OF CARE 214 MG/DL (70-110)
[2024-04-01 21:55] VITALS: BP 119/68; PULSE 70; RESP 17; TEMP 98.3; O2SAT 96
[2024-04-02 06:06] LABS: GLUCOMETER DEV NAME(LOC) 3E.I 2; GLUCOSE,POINT OF CARE 132 MG/DL (70-110)
[2024-04-02 09:00] VITALS: BP 124/64; PULSE 68; RESP 18; TEMP 97.3; O2SAT 97
[2024-04-02 09:16] LABS: BASOPHILS % (AUTO) 0.6 % (0.0-2.0); EOSINOPHILS % (AUTO) 1.6 % (1.0-6.0); HEMATOCRIT 40.1 % (36-46); HEMOGLOBIN 13.5 g/dL (12.0-16.0); LYMPHOCYTES # (AUTO) 2.3 K/uL (1.0-4.8); LYMPHOCYTES % (AUTO) 18.6 % (22.0-44.0); MEAN CORPUSCULAR HEMOGLOBIN 29.8 pg (26.0-34.0); MEAN CORPUSCULAR HGB CONC 33.5 G/dL (31.0-37.0); MEAN CORPUSCULAR VOLUME 89 fL (80-100); MONOCYTES # (AUTO) 0.7 K/uL (0.1-1.0); MONOCYTES % (AUTO) 5.7 % (2.0-9.0); NEUTROPHILS # (AUTO) 9.2 K/uL (1.8-7.7); NEUTROPHILS % (AUTO) 73.5 % (40.0-70.0); PLATELET COUNT (AUTO) 219 K/uL (150-450); RED BLOOD CELL COUNT(AUTO) 4.52 MIL/uL (4.00-5.20); RED CELL DISTRIBUTION WIDTH 12.7 % (11.5-14.5); WHITE BLOOD COUNT (AUTO) 12.5 K/uL (4.5-11.0)
[2024-04-02 11:36] LABS: GLUCOMETER DEV NAME(LOC) 3E.I 2; GLUCOSE,POINT OF CARE 146 MG/DL (70-110)
[2024-04-02 17:11] LABS: GLUCOMETER DEV NAME(LOC) 3E.I 2; GLUCOSE,POINT OF CARE 197 MG/DL (70-110)
[2024-04-02 20:15] LABS: GLUCOMETER DEV NAME(LOC) 3E.I 2; GLUCOSE,POINT OF CARE 174 MG/DL (70-110)
[2024-04-02 22:15] VITALS: BP 110/65; PULSE 80; RESP 18; TEMP 98.5; O2SAT 96
[2024-04-03 06:11] LABS: GLUCOMETER DEV NAME(LOC) 3E.I 2; GLUCOSE,POINT OF CARE 206 MG/DL (70-110)
[2024-04-03 10:15] VITALS: BP 137/91; PULSE 97; RESP 18; TEMP 97.9; O2SAT 98
[2024-04-03 11:30] LABS: GLUCOMETER DEV NAME(LOC) 3E.I 2; GLUCOSE,POINT OF CARE 211 MG/DL (70-110)
[2024-04-03] MEDS: ETHYL ALCOHOL 62% ANTISEPTIC NASAL SANITIZER 0.6 ML AMPUL NASAL SCH (16:49)
[2024-04-03 17:10] LABS: GLUCOMETER DEV NAME(LOC) 3E.I 2; GLUCOSE,POINT OF CARE 176 MG/DL (70-110)
[2024-04-03 20:06] LABS: GLUCOMETER DEV NAME(LOC) 3E.I 2; GLUCOSE,POINT OF CARE 169 MG/DL (70-110)
[2024-04-03 22:15] VITALS: BP 104/55; PULSE 79; RESP 18; TEMP 97; O2SAT 96
[2024-04-04 06:06] LABS: GLUCOMETER DEV NAME(LOC) 3E.I 2; GLUCOSE,POINT OF CARE 148 MG/DL (70-110)
[2024-04-04] MEDS: CHLORHEXIDINE GLUCONATE 2% TOWELETTE [2'S/6'S] TP ONE (08:33)
[2024-04-04 09:56] VITALS: BP 142/88; PULSE 92; RESP 18; TEMP 97.9; O2SAT 97
[2024-04-04 11:36] LABS: GLUCOMETER DEV NAME(LOC) 3E.I 2; GLUCOSE,POINT OF CARE 231 MG/DL (70-110)
[2024-04-04] MEDS: PredniSONE 20 MG TABLET PO SCH (14:57)
[2024-04-04] MEDS: TRIAMCINOLONE 0.1% 15 GM CREAM TP SCH (15:10)
[2024-04-04 17:21] LABS: GLUCOMETER DEV NAME(LOC) 3E.I 2; GLUCOSE,POINT OF CARE 167 MG/DL (70-110)
[2024-04-04 21:20] LABS: GLUCOMETER DEV NAME(LOC) 3E.I 2; GLUCOSE,POINT OF CARE 245 MG/DL (70-110)
[2024-04-04 23:00] VITALS: BP 107/55; PULSE 76; RESP 18; TEMP 97.1; O2SAT 95
[2024-04-05 08:00] LABS: GLUCOMETER DEV NAME(LOC) 3E.I 2; GLUCOSE,POINT OF CARE 140 MG/DL (70-110)
[2024-04-05 09:10] VITALS: BP 130/67; PULSE 85; RESP 18; TEMP 97.8; O2SAT 96
[2024-04-05 11:36] LABS: GLUCOMETER DEV NAME(LOC) 3E.I 2; GLUCOSE,POINT OF CARE 195 MG/DL (70-110)
[2024-04-05 17:20] LABS: GLUCOMETER DEV NAME(LOC) 3E.I 2; GLUCOSE,POINT OF CARE 369 MG/DL (70-110)
[2024-04-05 21:15] LABS: GLUCOMETER DEV NAME(LOC) 3E.I 2; GLUCOSE,POINT OF CARE 293 MG/DL (70-110)
[2024-04-05 22:46] VITALS: RESP 18
[2024-04-06 06:01] LABS: GLUCOMETER DEV NAME(LOC) 3E.I 2; GLUCOSE,POINT OF CARE 119 MG/DL (70-110)
[2024-04-06 08:30] VITALS: BP 143/85; PULSE 78; RESP 16; TEMP 97.7; O2SAT 95
[2024-04-06 12:21] LABS: GLUCOMETER DEV NAME(LOC) 3E.I 2; GLUCOSE,POINT OF CARE 164 MG/DL (70-110)
[2024-04-06 16:56] LABS: GLUCOMETER DEV NAME(LOC) 3E.I 2; GLUCOSE,POINT OF CARE 268 MG/DL (70-110)
[2024-04-06 21:21] LABS: GLUCOMETER DEV NAME(LOC) 3E.I 2; GLUCOSE,POINT OF CARE 301 MG/DL (70-110)
[2024-04-06 21:27] VITALS: RESP 16; TEMP 97.6
[2024-04-07 06:51] LABS: GLUCOMETER DEV NAME(LOC) 3E.I 2; GLUCOSE,POINT OF CARE 121 MG/DL (70-110)
[2024-04-07 08:08] VITALS: BP 132/78; PULSE 77; RESP 18; TEMP 98; O2SAT 96
[2024-04-07 11:41] LABS: GLUCOMETER DEV NAME(LOC) 3E.I 2; GLUCOSE,POINT OF CARE 163 MG/DL (70-110)
[2024-04-07 17:35] LABS: GLUCOMETER DEV NAME(LOC) 3E.I 2; GLUCOSE,POINT OF CARE 321 MG/DL (70-110)
[2024-04-07 20:46] LABS: GLUCOMETER DEV NAME(LOC) 3E.I 2; GLUCOSE,POINT OF CARE 356 MG/DL (70-110)
[2024-04-07 21:48] VITALS: BP 133/73; PULSE 89; RESP 19; TEMP 98.1; O2SAT 98
[2024-04-08 06:35] LABS: GLUCOMETER DEV NAME(LOC) 3E.I 2; GLUCOSE,POINT OF CARE 128 MG/DL (70-110)
[2024-04-08 09:40] VITALS: BP 113/62; PULSE 82; RESP 18; TEMP 97.7; O2SAT 99
[2024-04-08 11:35] LABS: GLUCOMETER DEV NAME(LOC) 3E.I 2; GLUCOSE,POINT OF CARE 207 MG/DL (70-110)
[2024-04-08 17:15] LABS: GLUCOMETER DEV NAME(LOC) 3E.I 2; GLUCOSE,POINT OF CARE 377 MG/DL (70-110)
[2024-04-08 20:30] LABS: GLUCOMETER DEV NAME(LOC) 3E.I 2; GLUCOSE,POINT OF CARE 274 MG/DL (70-110)
[2024-04-08 20:49] VITALS: BP 109/72; PULSE 85; RESP 18; TEMP 97.3; O2SAT 96
[2024-04-09 06:25] LABS: GLUCOMETER DEV NAME(LOC) 3E.I 2; GLUCOSE,POINT OF CARE 155 MG/DL (70-110)
[2024-04-09 07:54] LABS: BASOPHILS % (AUTO) 0.4 % (0.0-2.0); EOSINOPHILS % (AUTO) 1.3 % (1.0-6.0); HEMATOCRIT 40.7 % (36-46); HEMOGLOBIN 13.8 g/dL (12.0-16.0); LYMPHOCYTES # (AUTO) 4.4 K/uL (1.0-4.8); LYMPHOCYTES % (AUTO) 27.1 % (22.0-44.0); MEAN CORPUSCULAR HEMOGLOBIN 29.9 pg (26.0-34.0); MEAN CORPUSCULAR HGB CONC 33.9 G/dL (31.0-37.0); MEAN CORPUSCULAR VOLUME 88 fL (80-100); MONOCYTES % (AUTO) 6.2 % (2.0-9.0); NEUTROPHILS # (AUTO) 10.5 K/uL (1.8-7.7); PLATELET COUNT (AUTO) 232 K/uL (150-450); RED BLOOD CELL COUNT(AUTO) 4.63 MIL/uL (4.00-5.20); RED CELL DISTRIBUTION WIDTH 12.8 % (11.5-14.5); WHITE BLOOD COUNT (AUTO) 16.1 K/uL (4.5-11.0)
[2024-04-09 09:59] VITALS: BP 113/71; PULSE 83; RESP 16; TEMP 98; O2SAT 98
[2024-04-09 12:06] LABS: GLUCOMETER DEV NAME(LOC) 3E.I 2; GLUCOSE,POINT OF CARE 171 MG/DL (70-110)
[2024-04-09 17:26] LABS: GLUCOMETER DEV NAME(LOC) 3E.I 2; GLUCOSE,POINT OF CARE 371 MG/DL (70-110)
[2024-04-09 20:16] LABS: GLUCOMETER DEV NAME(LOC) 3E.I 2; GLUCOSE,POINT OF CARE 244 MG/DL (70-110)
[2024-04-09 21:43] VITALS: BP 119/70; PULSE 81; RESP 18; TEMP 97.4
[2024-04-10 05:51] LABS: GLUCOMETER DEV NAME(LOC) 3E.I 2; GLUCOSE,POINT OF CARE 125 MG/DL (70-110)
[2024-04-10 09:32] VITALS: BP 133/72; PULSE 81; RESP 18; TEMP 97.6; O2SAT 97
[2024-04-10 12:05] LABS: GLUCOMETER DEV NAME(LOC) 3E.I 2; GLUCOSE,POINT OF CARE 178 MG/DL (70-110)
[2024-04-10 17:15] LABS: GLUCOMETER DEV NAME(LOC) 3E.I 2; GLUCOSE,POINT OF CARE 331 MG/DL (70-110)
[2024-04-10 20:30] LABS: GLUCOMETER DEV NAME(LOC) 3E.I 2; GLUCOSE,POINT OF CARE 182 MG/DL (70-110)
[2024-04-10 22:19] VITALS: BP 131/77; PULSE 82; RESP 18; TEMP 97.4; O2SAT 98
[2024-04-11 06:05] LABS: GLUCOMETER DEV NAME(LOC) 3E.I 2; GLUCOSE,POINT OF CARE 126 MG/DL (70-110)
[2024-04-11 11:56] LABS: GLUCOMETER DEV NAME(LOC) 3E.I 2; GLUCOSE,POINT OF CARE 161 MG/DL (70-110)
[2024-04-11 14:56] VITALS: BP 139/78; PULSE 79; RESP 17; TEMP 98
[2024-04-11 17:45] LABS: GLUCOMETER DEV NAME(LOC) 3E.I 2; GLUCOSE,POINT OF CARE 386 MG/DL (70-110)
[2024-04-11 20:55] LABS: GLUCOMETER DEV NAME(LOC) 3E.I 2; GLUCOSE,POINT OF CARE 295 MG/DL (70-110)
[2024-04-11 22:54] VITALS: BP 102/70; PULSE 76; RESP 18; TEMP 98; O2SAT 96
[2024-04-12 05:50] LABS: GLUCOMETER DEV NAME(LOC) 3E.I 2; GLUCOSE,POINT OF CARE 140 MG/DL (70-110)
[2024-04-12 08:57] VITALS: BP 122/73; PULSE 83; RESP 18; TEMP 97.9; O2SAT 98
[2024-04-12 11:25] LABS: GLUCOMETER DEV NAME(LOC) 3E.I 2; GLUCOSE,POINT OF CARE 272 MG/DL (70-110)
[2024-04-12 16:50] LABS: GLUCOMETER DEV NAME(LOC) 3E.I 2; GLUCOSE,POINT OF CARE 355 MG/DL (70-110)
[2024-04-12 20:10] LABS: GLUCOMETER DEV NAME(LOC) 3E.I 2; GLUCOSE,POINT OF CARE 275 MG/DL (70-110)
[2024-04-12 21:19] VITALS: BP 118/77; PULSE 72; RESP 18; TEMP 97.7; O2SAT 97
[2024-04-13 06:21] LABS: GLUCOMETER DEV NAME(LOC) 3E.I 2; GLUCOSE,POINT OF CARE 135 MG/DL (70-110)
[2024-04-13 09:00] VITALS: BP 106/53; PULSE 78; RESP 18; TEMP 97.9; O2SAT 96
[2024-04-13 11:56] LABS: GLUCOMETER DEV NAME(LOC) 3E.I 2; GLUCOSE,POINT OF CARE 143 MG/DL (70-110)
[2024-04-13 17:46] LABS: GLUCOMETER DEV NAME(LOC) 3E.I 2; GLUCOSE,POINT OF CARE 253 MG/DL (70-110)
[2024-04-13 20:26] LABS: GLUCOMETER DEV NAME(LOC) 3E.I 2; GLUCOSE,POINT OF CARE 222 MG/DL (70-110)
[2024-04-13 22:15] VITALS: BP 125/72; PULSE 73; RESP 18; TEMP 97.5
[2024-04-14 05:30] LABS: GLUCOMETER DEV NAME(LOC) 3E.I 2; GLUCOSE,POINT OF CARE 116 MG/DL (70-110)
[2024-04-14 12:00] LABS: GLUCOMETER DEV NAME(LOC) 3E.I 2; GLUCOSE,POINT OF CARE 216 MG/DL (70-110)
[2024-04-14 15:27] VITALS: RESP 18; O2SAT 0
[2024-04-14 17:35] LABS: GLUCOMETER DEV NAME(LOC) 3E.I 2; GLUCOSE,POINT OF CARE 480 MG/DL (70-110)
[2024-04-14] MEDS: INSULIN LISPRO 100 UNITS/ML SQ ONE ×2 (17:47→20:32)
[2024-04-14 20:11] LABS: GLUCOMETER DEV NAME(LOC) 3E.I 2; GLUCOSE,POINT OF CARE 417 MG/DL (70-110)
[2024-04-14 22:23] VITALS: BP 116/81; PULSE 92; RESP 18; TEMP 97.4; O2SAT 97
[2024-04-15 05:30] LABS: GLUCOMETER DEV NAME(LOC) 3E.I 2; GLUCOSE,POINT OF CARE 131 MG/DL (70-110)
[2024-04-15 09:00] VITALS: BP 111/52; PULSE 87; RESP 18; TEMP 97.4; O2SAT 98
[2024-04-15] MEDS: TRIAMCINOLONE 0.1% 80 GM CREAM TP SCH (10:32)
[2024-04-15 11:56] LABS: GLUCOMETER DEV NAME(LOC) 3E.I 2; GLUCOSE,POINT OF CARE 201 MG/DL (70-110)
[2024-04-15 17:31] LABS: GLUCOMETER DEV NAME(LOC) 3E.I 2; GLUCOSE,POINT OF CARE 293 MG/DL (70-110)
[2024-04-15 21:33] LABS: GLUCOMETER DEV NAME(LOC) 3E.I 2; GLUCOSE,POINT OF CARE 240 MG/DL (70-110)
[2024-04-15 21:39] VITALS: BP 128/74; PULSE 84; RESP 20; TEMP 97.8; O2SAT 99
[2024-04-16 06:30] LABS: GLUCOMETER DEV NAME(LOC) 3E.I 2; GLUCOSE,POINT OF CARE 142 MG/DL (70-110)
[2024-04-16 11:55] LABS: GLUCOMETER DEV NAME(LOC) 3E.I 2; GLUCOSE,POINT OF CARE 123 MG/DL (70-110)
[2024-04-16 16:41] LABS: GLUCOMETER DEV NAME(LOC) 3E.I 2; GLUCOSE,POINT OF CARE 257 MG/DL (70-110)
[2024-04-16 21:41] LABS: GLUCOMETER DEV NAME(LOC) 3E.I 2; GLUCOSE,POINT OF CARE 126 MG/DL (70-110)
[2024-04-16 23:12] VITALS: BP 119/76; PULSE 88; RESP 18; TEMP 97.4; O2SAT 97
[2024-04-17 05:51] LABS: GLUCOMETER DEV NAME(LOC) 3E.I 2; GLUCOSE,POINT OF CARE 102 MG/DL (70-110)
[2024-04-17 08:23] LABS: BASOPHILS % (AUTO) 0.5 % (0.0-2.0); EOSINOPHILS % (AUTO) 0.9 % (1.0-6.0); HEMATOCRIT 43.7 % (36-46); HEMOGLOBIN 14.7 g/dL (12.0-16.0); LYMPHOCYTES # (AUTO) 5.2 K/uL (1.0-4.8); MEAN CORPUSCULAR HEMOGLOBIN 29.9 pg (26.0-34.0); MEAN CORPUSCULAR HGB CONC 33.6 G/dL (31.0-37.0); MEAN CORPUSCULAR VOLUME 89 fL (80-100); MONOCYTES # (AUTO) 0.8 K/uL (0.1-1.0); NEUTROPHILS # (AUTO) 12.5 K/uL (1.8-7.7); NEUTROPHILS % (AUTO) 66.6 % (40.0-70.0); PLATELET COUNT (AUTO) 308 K/uL (150-450); RED BLOOD CELL COUNT(AUTO) 4.91 MIL/uL (4.00-5.20); RED CELL DISTRIBUTION WIDTH 12.5 % (11.5-14.5); WHITE BLOOD COUNT (AUTO) 18.7 K/uL (4.5-11.0)
[2024-04-17 08:42] LABS: ANION GAP 7 mmol/L (8-16); CARBON DIOXIDE 32 mmol/L (22-29); CHLORIDE 98 mmol/L (98-107); CHOL/HDL RATIO 3.9 (3.9-5.7); CHOLESTEROL 239 mg/dL (131-200); CREATININE 0.67 mg/dL (0.60-1.30); GLOMERULAR FILTR. RATE CALC > 60 mL/min (>60); GLUCOSE,RANDOM 139 mg/dL (70-110); HDL CHOLESTEROL 61 mg/dL (40-60); LDL CHOL (CALC.) 122 mg/dL (0-130); POTASSIUM 3.9 mmol/L (3.5-5.1); SODIUM SERUM 137 mmol/L (136-145); TRIGLYCERIDES 280 mg/dL (15-150); UREA NITROGEN, BLOOD 14 mg/dL (7-18)
[2024-04-17 09:00] VITALS: BP 123/82; PULSE 83; RESP 18; TEMP 97.7; O2SAT 95
[2024-04-17 11:40] LABS: GLUCOMETER DEV NAME(LOC) 3E.I 2; GLUCOSE,POINT OF CARE 162 MG/DL (70-110)
[2024-04-17 17:10] LABS: GLUCOMETER DEV NAME(LOC) 3E.I 2; GLUCOSE,POINT OF CARE 408 MG/DL (70-110)
[2024-04-17] MEDS: INSULIN LISPRO 100 UNITS/ML SQ ONE (17:53)
[2024-04-17 21:00] LABS: GLUCOMETER DEV NAME(LOC) 3E.I 2; GLUCOSE,POINT OF CARE 179 MG/DL (70-110)
[2024-04-17 23:52] VITALS: RESP 18
[2024-04-18 05:56] LABS: GLUCOMETER DEV NAME(LOC) 3E.I 2; GLUCOSE,POINT OF CARE 142 MG/DL (70-110)
[2024-04-18 09:00] VITALS: BP 111/86; PULSE 101; RESP 17; TEMP 98.1; O2SAT 95
[2024-04-18 11:55] LABS: GLUCOMETER DEV NAME(LOC) 3E.I 2; GLUCOSE,POINT OF CARE 142 MG/DL (70-110)
[2024-04-18 17:20] LABS: GLUCOMETER DEV NAME(LOC) 3E.I 2; GLUCOSE,POINT OF CARE 254 MG/DL (70-110)
[2024-04-18] MEDS ORDERED: DEXTROSE 50%-WATER 25 GM/50 ML SYRINGE IVP PRN (19:15)
[2024-04-18 20:26] LABS: GLUCOMETER DEV NAME(LOC) 3E.I 2; GLUCOSE,POINT OF CARE 215 MG/DL (70-110)
[2024-04-18] MEDS: INSULIN LISPRO 100 UNITS/ML SQ PRN (21:16)
[2024-04-18 21:25] VITALS: RESP 18
[2024-04-19 06:20] LABS: GLUCOMETER DEV NAME(LOC) 3E.I 2; GLUCOSE,POINT OF CARE 138 MG/DL (70-110)
[2024-04-19 09:08] VITALS: BP 133/77; PULSE 85; RESP 18; TEMP 97.9; O2SAT 97
[2024-04-19] MEDS: PredniSONE 20 MG TABLET PO SCH (09:29)
[2024-04-19 12:16] LABS: GLUCOMETER DEV NAME(LOC) 3E.I 2; GLUCOSE,POINT OF CARE 175 MG/DL (70-110)
[2024-04-19 17:51] LABS: GLUCOMETER DEV NAME(LOC) 3E.I 2; GLUCOSE,POINT OF CARE 346 MG/DL (70-110)
[2024-04-19 20:27] VITALS: BP 132/67; PULSE 93; RESP 18; TEMP 98.3; O2SAT 95
[2024-04-19 20:36] LABS: GLUCOMETER DEV NAME(LOC) 3E.I 2; GLUCOSE,POINT OF CARE 216 MG/DL (70-110)
[2024-04-20 05:46] LABS: GLUCOMETER DEV NAME(LOC) 3E.I 2; GLUCOSE,POINT OF CARE 129 MG/DL (70-110)
[2024-04-20 09:22] VITALS: BP 148/91; PULSE 96; RESP 17; TEMP 97.8; O2SAT 98
[2024-04-20 11:50] LABS: GLUCOMETER DEV NAME(LOC) 3E.I 2; GLUCOSE,POINT OF CARE 182 MG/DL (70-110)
[2024-04-20 16:40] LABS: GLUCOMETER DEV NAME(LOC) 3E.I 2; GLUCOSE,POINT OF CARE 400 MG/DL (70-110)
[2024-04-20 17:35] LABS: GLUCOMETER DEV NAME(LOC) 3E.I 2; GLUCOSE,POINT OF CARE 350 MG/DL (70-110)
[2024-04-20 21:06] VITALS: BP 128/68; PULSE 96; RESP 18; TEMP 97.8; O2SAT 97
[2024-04-20 22:01] LABS: GLUCOMETER DEV NAME(LOC) 3E.I 2; GLUCOSE,POINT OF CARE 247 MG/DL (70-110)
[2024-04-21 07:02] LABS: GLUCOMETER DEV NAME(LOC) 3E.I 2; GLUCOSE,POINT OF CARE 128 MG/DL (70-110)
[2024-04-21 09:00] VITALS: BP 116/62; PULSE 89; RESP 18; TEMP 98.3
[2024-04-21 11:51] LABS: GLUCOMETER DEV NAME(LOC) 3E.I 2; GLUCOSE,POINT OF CARE 183 MG/DL (70-110)
[2024-04-21 17:10] LABS: GLUCOMETER DEV NAME(LOC) 3E.I 2; GLUCOSE,POINT OF CARE 379 MG/DL (70-110)
[2024-04-21 20:11] LABS: GLUCOMETER DEV NAME(LOC) 3E.I 2; GLUCOSE,POINT OF CARE 272 MG/DL (70-110)
[2024-04-21 21:03] VITALS: BP 126/77; PULSE 62; RESP 18; TEMP 98.1; O2SAT 97
[2024-04-22 07:15] LABS: GLUCOMETER DEV NAME(LOC) 3E.I 2; GLUCOSE,POINT OF CARE 130 MG/DL (70-110)
[2024-04-22 08:00] VITALS: BP 125/66; PULSE 83; RESP 20; TEMP 97.6; O2SAT 97
[2024-04-22 11:45] LABS: GLUCOMETER DEV NAME(LOC) 3E.I 2; GLUCOSE,POINT OF CARE 187 MG/DL (70-110)
[2024-04-22 16:35] LABS: GLUCOMETER DEV NAME(LOC) 3E.I 2; GLUCOSE,POINT OF CARE 322 MG/DL (70-110)
[2024-04-22 20:11] LABS: GLUCOMETER DEV NAME(LOC) 3E.I 2; GLUCOSE,POINT OF CARE 186 MG/DL (70-110)
[2024-04-22 20:23] VITALS: BP 126/73; PULSE 78; RESP 18; TEMP 97.6; O2SAT 97
[2024-04-23 06:25] LABS: GLUCOMETER DEV NAME(LOC) 3E.I 2; GLUCOSE,POINT OF CARE 116 MG/DL (70-110)
[2024-04-23 09:23] VITALS: RESP 18
[2024-04-23 11:15] LABS: GLUCOMETER DEV NAME(LOC) 3E.I 2; GLUCOSE,POINT OF CARE 247 MG/DL (70-110)
[2024-04-23 11:24] LABS: EOSINOPHILS % (AUTO) 0.7 % (1.0-6.0); HEMATOCRIT 40.4 % (36-46); HEMOGLOBIN 13.4 g/dL (12.0-16.0); LYMPHOCYTES # (AUTO) 2.4 K/uL (1.0-4.8); LYMPHOCYTES % (AUTO) 13.9 % (22.0-44.0); MEAN CORPUSCULAR HEMOGLOBIN 29.6 pg (26.0-34.0); MEAN CORPUSCULAR HGB CONC 33.1 G/dL (31.0-37.0); MEAN CORPUSCULAR VOLUME 89 fL (80-100); MONOCYTES # (AUTO) 0.9 K/uL (0.1-1.0); MONOCYTES % (AUTO) 5.1 % (2.0-9.0); NEUTROPHILS # (AUTO) 13.9 K/uL (1.8-7.7); NEUTROPHILS % (AUTO) 79.3 % (40.0-70.0); PLATELET COUNT (AUTO) 267 K/uL (150-450); RED BLOOD CELL COUNT(AUTO) 4.52 MIL/uL (4.00-5.20); RED CELL DISTRIBUTION WIDTH 12.7 % (11.5-14.5); WHITE BLOOD COUNT (AUTO) 17.5 K/uL (4.5-11.0)
[2024-04-23 16:21] LABS: GLUCOMETER DEV NAME(LOC) 3E.I 2; GLUCOSE,POINT OF CARE 327 MG/DL (70-110)
[2024-04-23 20:30] VITALS: BP 128/74; PULSE 92; RESP 18; TEMP 97.7; O2SAT 97
[2024-04-23 20:46] LABS: GLUCOMETER DEV NAME(LOC) 3E.I 2; GLUCOSE,POINT OF CARE 231 MG/DL (70-110)
[2024-04-24 06:26] LABS: GLUCOMETER DEV NAME(LOC) 3E.I 2; GLUCOSE,POINT OF CARE 116 MG/DL (70-110)
[2024-04-24 09:19] VITALS: RESP 19
[2024-04-24 11:35] LABS: GLUCOMETER DEV NAME(LOC) 3E.I 2; GLUCOSE,POINT OF CARE 188 MG/DL (70-110)
[2024-04-24 16:21] LABS: GLUCOMETER DEV NAME(LOC) 3E.I 2; GLUCOSE,POINT OF CARE 392 MG/DL (70-110)
[2024-04-24 17:15] LABS: GLUCOMETER DEV NAME(LOC) 3E.I 2; GLUCOSE,POINT OF CARE 365 MG/DL (70-110)
[2024-04-24 20:45] LABS: GLUCOMETER DEV NAME(LOC) 3E.I 2; GLUCOSE,POINT OF CARE 213 MG/DL (70-110)
[2024-04-24 21:43] VITALS: RESP 18
[2024-04-25 05:56] LABS: GLUCOMETER DEV NAME(LOC) 3E.I 2; GLUCOSE,POINT OF CARE 127 MG/DL (70-110)
[2024-04-25 08:59] VITALS: BP 140/83; PULSE 89; RESP 17; TEMP 97.8; O2SAT 89
[2024-04-25 11:56] LABS: GLUCOMETER DEV NAME(LOC) 3E.I 2; GLUCOSE,POINT OF CARE 185 MG/DL (70-110)
[2024-04-25 17:35] LABS: GLUCOMETER DEV NAME(LOC) 3E.I 2; GLUCOSE,POINT OF CARE 325 MG/DL (70-110)
[2024-04-25 20:21] LABS: GLUCOMETER DEV NAME(LOC) 3E.I 2; GLUCOSE,POINT OF CARE 304 MG/DL (70-110)
[2024-04-25 21:14] VITALS: RESP 18
[2024-04-26 05:45] LABS: GLUCOMETER DEV NAME(LOC) 3E.I 2; GLUCOSE,POINT OF CARE 126 MG/DL (70-110)
[2024-04-26 09:18] VITALS: BP 128/77; PULSE 93; RESP 18; TEMP 97.7; O2SAT 97
[2024-04-26 11:55] LABS: GLUCOMETER DEV NAME(LOC) 3E.I 2; GLUCOSE,POINT OF CARE 156 MG/DL (70-110)
[2024-04-26 17:00] LABS: GLUCOMETER DEV NAME(LOC) 3E.I 2; GLUCOSE,POINT OF CARE 252 MG/DL (70-110)
[2024-04-26 20:51] LABS: GLUCOMETER DEV NAME(LOC) 3E.I 2; GLUCOSE,POINT OF CARE 229 MG/DL (70-110)
[2024-04-26 22:28] VITALS: BP 151/94; PULSE 90; RESP 18; TEMP 97.4; O2SAT 98
[2024-04-27 05:51] LABS: GLUCOMETER DEV NAME(LOC) 3E.I 2; GLUCOSE,POINT OF CARE 109 MG/DL (70-110)
[2024-04-27 09:12] VITALS: RESP 18
[2024-04-27 11:45] LABS: GLUCOMETER DEV NAME(LOC) 3E.I 2; GLUCOSE,POINT OF CARE 223 MG/DL (70-110)
[2024-04-27 17:16] LABS: GLUCOMETER DEV NAME(LOC) 3E.I 2; GLUCOSE,POINT OF CARE 237 MG/DL (70-110)
[2024-04-27 20:57] VITALS: BP 124/79; PULSE 74; RESP 18; TEMP 98.2; O2SAT 98
[2024-04-27 21:10] LABS: GLUCOMETER DEV NAME(LOC) 3EX.2; GLUCOSE,POINT OF CARE 240 MG/DL (70-110)
[2024-04-28 07:05] LABS: GLUCOMETER DEV NAME(LOC) 3E.I 2; GLUCOSE,POINT OF CARE 126 MG/DL (70-110)
[2024-04-28 08:00] VITALS: BP 133/77; PULSE 82; RESP 18; TEMP 97.5; O2SAT 95
[2024-04-28 11:26] LABS: GLUCOMETER DEV NAME(LOC) 3E.I 2; GLUCOSE,POINT OF CARE 190 MG/DL (70-110)
[2024-04-28 16:56] LABS: GLUCOMETER DEV NAME(LOC) 3E.I 2; GLUCOSE,POINT OF CARE 302 MG/DL (70-110)
[2024-04-28 21:21] LABS: GLUCOMETER DEV NAME(LOC) 3E.I 2; GLUCOSE,POINT OF CARE 230 MG/DL (70-110)
[2024-04-28 21:28] VITALS: RESP 18
[2024-04-29 06:50] LABS: GLUCOMETER DEV NAME(LOC) 3E.I 2; GLUCOSE,POINT OF CARE 132 MG/DL (70-110)
[2024-04-29 08:00] VITALS: BP 125/72; PULSE 78; RESP 18; TEMP 98
[2024-04-29 11:56] LABS: GLUCOMETER DEV NAME(LOC) 3E.I 2; GLUCOSE,POINT OF CARE 201 MG/DL (70-110)
[2024-04-29 17:06] LABS: GLUCOMETER DEV NAME(LOC) 3E.I 2; GLUCOSE,POINT OF CARE 222 MG/DL (70-110)
[2024-04-29 20:55] VITALS: BP 139/83; PULSE 95; RESP 18; TEMP 98.1; O2SAT 99
[2024-04-29 21:40] LABS: GLUCOMETER DEV NAME(LOC) 3E.I 2; GLUCOSE,POINT OF CARE 229 MG/DL (70-110)
[2024-04-30 06:15] LABS: GLUCOMETER DEV NAME(LOC) 3E.I 2; GLUCOSE,POINT OF CARE 142 MG/DL (70-110)
[2024-04-30 08:15] VITALS: BP 135/84; PULSE 86; RESP 18; TEMP 98; O2SAT 96
[2024-04-30 08:15] LABS: COVID AG,FIA SOURCE NASAL SWAB
[2024-04-30 08:17] LABS: BASOPHILS % (AUTO) 0.7 % (0.0-2.0); EOSINOPHILS % (AUTO) 1.2 % (1.0-6.0); HEMATOCRIT 41.3 % (36-46); HEMOGLOBIN 13.7 g/dL (12.0-16.0); LYMPHOCYTES # (AUTO) 4.7 K/uL (1.0-4.8); LYMPHOCYTES % (AUTO) 30.6 % (22.0-44.0); MEAN CORPUSCULAR HEMOGLOBIN 29.9 pg (26.0-34.0); MEAN CORPUSCULAR HGB CONC 33.2 G/dL (31.0-37.0); MEAN CORPUSCULAR VOLUME 90 fL (80-100); MONOCYTES # (AUTO) 0.8 K/uL (0.1-1.0); MONOCYTES % (AUTO) 5.4 % (2.0-9.0); NEUTROPHILS # (AUTO) 9.6 K/uL (1.8-7.7); NEUTROPHILS % (AUTO) 62.1 % (40.0-70.0); PLATELET COUNT (AUTO) 249 K/uL (150-450); RED CELL DISTRIBUTION WIDTH 12.7 % (11.5-14.5); WHITE BLOOD COUNT (AUTO) 15.5 K/uL (4.5-11.0)
[2024-04-30 08:38] LABS: SARS-COV2 (COVID) ANTIGEN,FIA Negative (Negative)
[2024-04-30 11:31] LABS: GLUCOMETER DEV NAME(LOC) 3E.I 2; GLUCOSE,POINT OF CARE 173 MG/DL (70-110)
[2024-04-30 17:40] LABS: GLUCOMETER DEV NAME(LOC) 3E.I 2; GLUCOSE,POINT OF CARE 375 MG/DL (70-110)
[2024-04-30 21:18] VITALS: BP 143/74; PULSE 87; RESP 19; TEMP 95.6; O2SAT 95
[2024-04-30 21:30] LABS: GLUCOMETER DEV NAME(LOC) 3E.I 2; GLUCOSE,POINT OF CARE 279 MG/DL (70-110)
[2024-05-01 06:31] LABS: GLUCOMETER DEV NAME(LOC) 3E.I 2; GLUCOSE,POINT OF CARE 126 MG/DL (70-110)
[2024-05-01 08:00] VITALS: BP 120/70; PULSE 82; RESP 18; TEMP 98.4; O2SAT 98
[2024-05-01] MEDS ORDERED: CLOZ100T61 PO (08:29)
[2024-05-01] MEDS ORDERED: SIMV-259 PO (08:33)
[2024-05-01] MEDS ORDERED: ETHY1MED2 NASAL (08:37)
[2024-05-01] MEDS ORDERED: TRIA15CR49 TP (08:39)
== END 2024-05-01 18:09 | DRG 750 ==
LOC: B3A 11:16 → 3EC 03-20 18:35 → 3EI 03-30 17:10
PROVIDERS: ADMIT Psychiatry & Neurology Child & Adolescent Psychiatry; ATTEND Psychiatry & Neurology Child & Adolescent Psychiatry
PROC: GZHZZZZ Group Psychotherapy (ICD-10-PCS; principal; 2024-02-29)
PROC: GZ51ZZZ Individual Psychotherapy, Behavioral (ICD-10-PCS; 2024-02-29)
DX: F20.0 Paranoid schizophrenia (principal); E11.9 Type 2 diabetes mellitus without complications; D72.829 Elevated white blood cell count, unspecified; E03.9 Hypothyroidism, unspecified; E78.5 Hyperlipidemia, unspecified; I10 Essential (primary) hypertension; Z20.822 Contact with and (suspected) exposure to COVID-19; K21.9 Gastro-esophageal reflux disease without esophagitis; L40.9 Psoriasis, unspecified; Z88.0 Allergy status to penicillin; Z91.148 Patient's other noncompliance with medication regimen for other reason
CPT/HCPCS: 80048; 80053; 80061; 80074; 80307; 81001; 82962; 83036; 84443; 85025; 86592; 87081; J1815; J3230

== ENCOUNTER 2024-03-20 18:08 | Emergency (ER) | payer MEDICAID ==
[~2024-03-20] VITALS: Ht 167.6 cm; Wt 108.0 kg
[2024-03-20 18:48] LABS: BASOPHILS % (AUTO) 0.9 % (0.0-2.0); EOSINOPHILS % (AUTO) 1.5 % (1.0-6.0); HEMATOCRIT 40.7 % (36-46); HEMOGLOBIN 13.8 g/dL (12.0-16.0); LYMPHOCYTES # (AUTO) 4.1 K/uL (1.0-4.8); LYMPHOCYTES % (AUTO) 24.8 % (22.0-44.0); MEAN CORPUSCULAR HGB CONC 33.9 G/dL (31.0-37.0); MEAN CORPUSCULAR VOLUME 89 fL (80-100); MONOCYTES # (AUTO) 0.9 K/uL (0.1-1.0); MONOCYTES % (AUTO) 5.3 % (2.0-9.0); NEUTROPHILS # (AUTO) 11.2 K/uL (1.8-7.7); NEUTROPHILS % (AUTO) 67.5 % (40.0-70.0); PLATELET COUNT (AUTO) 273 K/uL (150-450); RED BLOOD CELL COUNT(AUTO) 4.59 MIL/uL (4.00-5.20); RED CELL DISTRIBUTION WIDTH 12.4 % (11.5-14.5); WHITE BLOOD COUNT (AUTO) 16.6 K/uL (4.5-11.0)
[2024-03-20 18:58] LABS: APPEARANCE,URINE CLEAR (CLEAR); BILIRUBIN,URINE NEGATIVE (NEGATIVE); COLOR,URINE LIGHT YELLOW (YELLOW); GLUCOSE, URINE (UA) 300-500 mg/dL (NEGATIVE); KETONES,URINE TRACE mg/dL (NEGATIVE); LEUKOCYTE ESTERASE ,URINE TRACE (NEGATIVE); NITRATE,URINE NEGATIVE (NEGATIVE); OCCULT BLOOD,URINE NEGATIVE (NEGATIVE); PH,URINE 5.5 (5.0-8.0); PROTEIN,URINE NEGATIVE (NEGATIVE); SPECIFIC GRAVITIY, URINE 1.024 (1.003-1.030); UROBILINOGEN,URINE <=1.0 mg/dL (<=1.0)
[2024-03-20 19:27] LABS: BACTERIA,URINE Few /HPF (None Seen); RBC,URINE None Seen /HPF (0-2); SQUAMOUS EPITHELIAL CELL,UR Moderate /LPF (None Seen)
[2024-03-20 21:09] VITALS: BP 116/69; PULSE 88; RESP 16; TEMP 98.8
== END 2024-03-20 23:16 | disposition still patient (30) ==
LOC: EMS 18:08
DX: F25.1 Schizoaffective disorder, depressive type (principal); D72.829 Elevated white blood cell count, unspecified; E78.5 Hyperlipidemia, unspecified; L40.9 Psoriasis, unspecified; Z90.49 Acquired absence of other specified parts of digestive tract; Z88.0 Allergy status to penicillin; Z88.5 Allergy status to narcotic agent; Z88.8 Allergy status to other drugs, medicaments and biological substances
CPT/HCPCS: 81001; 85025; 99283